=== PATIENT | female | born 2000 | race Two or more races ===

== ENCOUNTER 2024-08-17 20:25 | Inpatient (IN) | payer MEDICAID, SELFPAY ==
[2024-08-17 20:25] VITALS: BMI 24.7
[2024-08-17 22:20] VITALS: BP 87/55; PULSE 111; RESP 18; TEMP 36.8; O2SAT 100
--- NOTE | 2024-08-17 22:31 | EDRME_ITS ---
Rapid Medical Screening Exam [facility] Arrival date/time: 08/17/24 20:25 24F with no significant PMH presents to to ED with 2 days of N/V, gen ab pain/cramping, and possible bright red diarrhea. There is also some lightheadedness. Patient denies URI symptoms, dysuria, and vaginal bleeding. Chief Complaint: General Adult/Misc Complain Vital signs: Vital Signs Temperature 98.2 F 08/17/24 22:20 Pulse Rate 111 H 08/17/24 22:20 Respiratory Rate 18 08/17/24 22:20 Blood Pressure 87/55 L 08/17/24 22:20 Pulse Oximetry (%) 100 08/17/24 22:20 Oxygen Delivery Method Room Air 08/17/24 22:20
[2024-08-17 22:53] VITALS: BP 88/46; PULSE 90; RESP 16; TEMP 36.9; O2SAT 99
[2024-08-17 22:54] LABS: Lactate (Lactic Acid) 3.2 mMol/L (0.4-2.0)
[2024-08-17 22:58] LABS: Basophils # (Auto) 0.1 Thou/mm3 (0.0-0.2); Basophils % (Auto) 0 % (0-2.5); Eosinophils % (Auto) 0 % (0-10); Hematocrit 31.1 % (36.0-46.0); Hemoglobin 10.4 g/dL (12.0-16.0); Immature Granulocytes % (Auto) 14 % (0-0); Immature Granulocytes Auto 3.66 Thou/mm3 (0.00-0.00); Lymphocytes # (Auto) 0.6 Thou/mm3 (1.0-4.8); Lymphocytes % (Auto) 2 % (10-50); Mean Corpuscular HGB Conc 33.4 g/dl (31.0-37.0); Mean Corpuscular Hemoglobin 29.5 pg (25.0-35.0); Mean Corpuscular Volume 88 fL (80-100); Monocytes # (Auto) 1.9 Thou/mm3 (0.0-0.8); Monocytes % (Auto) 7 % (0-12); Neutrophils # (Auto) 20.7 Thou/mm3 (1.8-7.7); Neutrophils % (Auto) 77 % (37-80); Nucleated Red Blood Cell % 0 /100 WBC (0); Platelet Count 205 Thou/mm3 (140-440); RDW Standard Deviation 47.1 fL (36.4-46.3); Red Blood Count 3.53 Miln/mm3 (4.00-5.20)
[2024-08-17 23:02] LABS: Collection Type, Urine Clean Catch
[2024-08-17] MEDS: ONDANSETRON INJ 2 MG/ML INJ 2 ML 4 MG IV (23:02)
[2024-08-17] MEDS: SODIUM CHLORIDE 0.9% 1000 ML 1,000 ML 999 ML IV ×2 (23:04→23:36)
--- NOTE | 2024-08-17 23:10 | EDNOTE_ITS ---
Nausea/Vomit./Diarrhea-RME/HPI General Chief complaint: General Adult/Misc Complain Stated complaint: LIGHHEADED, VOMITING, FEVER, H/A Source: patient Arrival date/time: 08/17/24 20:25 Mode of arrival: ambulatory Limitations: no limitations RME / HPI RME / HPI Narrative: 08/17/24 20:25 24F with no significant PMH presents to to ED with 2 days of N/V, gen ab pain/c ramping, and fevers, chills, body aches and sweats. There is also some lightheadedness. Patient denies URI symptoms, dysuria, and vaginal bleeding. Dr. Barreto?s Main ED Evaluation:?24 y/o male presents to ED c/o intermittent fever, generalized abdominal pain, lightheadedness, sweats, chills, body aches, and headache x 1 week. Patient also reports nausea and vomiting x 2 days and is worse today. Lower and upper back pain also reported. Patient reports urinary urgency. Denies dysuria, sore throat, runny nose, or cough. Also denies any prior abd ominal surgeries. States the only sick contact was her boyfriend who had a cough and stuffy nose. Patient tried Tylenol and Ibuprofen at 2 PM while at home. MD complaint: abdominal pain Onset (ago): week(s) (1) Description of Vomiting: food contents Associated Abdominal Pain: Yes Location of pain: diffuse Severity: moderate Quality: cramping Consistency: constant Associated symptoms: myalgias, fever/chills, headaches, malaise, nausea/vomiting and weakness Related Data Previous Rx's ?Medication ?Instructions ?Recorded ibuprofen 600 mg tablet (IBU) 600 mg PO TID PRN fever or pain 09/01/17 #30 tabs doxycycline hyclate 100 mg capsule 100 mg PO BID #14 c aps 03/03/21 diclofenac sodium 1 % topical gel 4 g topical QID #100 grams 05/11/23 (Voltaren Arthritis Pain) Allergies Allergy/AdvReac Type Severity Reaction Status Date / Time No Known Allergies Allergy Verified 05/11/23 10:03 Review of Systems Review of Systems Systems Reviewed: All systems reviewed, normal except as documented ED Exam Narrative Physical exam: GENERAL APPEARANCE: alert and oriented x 4, well-developed, well-nourished, no acute distress VITALS: All vitals were reviewed and the pulse ox is 100% on room air, which is normal according to my interpretation. HEENT: Normocephalic, atraumatic; pupils equal, round, reactive to light; EOMI; mucous membranes pink, moist; oropharynx clear NECK: Supple LUNGS: CTABL; no wheezes, no rales, no rhonchi HEART: Mild regular tachycardia with rate in the 100's; normal S1, S2; no murmurs ABDOMEN: non distended; normal BS; soft, generalized mild to moderate TTP in all quadrants, not 1 spot more than another spot, no guarding, no rebound; no masses, no organomegaly, no hernia BACK: No CVA tenderness EXTREMITIES: atraumatic; no edema NEUROLOGIC: awake; alert and oriented x4; cranial nerves II-XII grossly intact; no focal sensory or motor deficits PSYCHIATRIC: appropriate mood and affect SKIN: warm, dry, normal color; no rashes General Limitations: Present no limitations Course Course Course Narrative: 2308: CXR is ordered for per sepsis protocol. 2309: Sepsis alert initiated. Orders made at this time are congruent with ED Adult Sepsis Order List. Re-evaluation is to be completed. 0010: NS IVF infused. 0040: Sepsis reassessment performed consisting of lab review, vitals, physical exam including auscultation of heart, lungs, and visual evaluation of capillary refills, mucosal membranes and extremities. Patient's labs and vital signs show the patient is in septic shock. Quality Measures Possible source: GI tract/intra-abdominal Blood cultures ordered: yes Antibiotic ordered: Yes Pertinent labs: 08/17/24 08/18/24 22:44 02:00 Lactic Acid 3.2 H mMol/L 2.6 H mMol/L (0.4-2.0) (0.4-2.0) Procalcitonin 24.17 H ng/ml (0.0-0.49) sepsis Orders Category Date Time Status Bedside Blood Glucose NOW Care 08/17/24 23:08 Active Bedside COVID-19 Antigen Test NOW Care 08/17/24 23:19 Active Bedside Influenza A&B Antigen Test NOW Care 08/17/24 23:[address] Screening NOW Care 08/17/24 23:18 Active Marketing Technology Coordinator now Care 08/17/24 23:08 Active Continuous Pulse Oximetry NOW Care 08/17/24 23:08 Completed Insert IV NOW Care 08/17/24 22:31 Active Insert IV NOW Care 08/17/24 23:08 Completed Strict Intake and Output Routine Care 08/17/24 23:[address] abdomen pelvis wo con Stat Exams 08/18/24 00:44 Completed XR chest 1V SEPSIS PROTOCOL Stat Exams 08/17/24 23:08 Completed Blood Culture (Lab) Stat Lab 08/17/24 23:25 Received CBC Stat Lab 08/17/24 22:44 Completed CMP [Comprehensive Metabolic Panel] Stat Lab 08/17/24 22:44 Completed HCG Qualitative,Urine Stat Lab 08/17/24 22:55 Completed Lactate (Lactic Acid) Stat Lab 08/17/24 22:44 Completed Lactic Acid, 3 HR Stat Lab 08/18/24 02:00 Completed Lipase Stat Lab 08/17/24 22:44 Completed Partial Thromboplastin Time Stat Lab 08/17/24 22:44 [address] Review Blood Smear Stat Lab 08/17/24 22:44 Completed Procalcitonin Stat Lab 08/17/24 22:44 Completed Prothrombin Time with INR Stat Lab 08/17/24 22:44 Completed Troponin I Stat Lab 08/17/24 22:44 Completed Urinalysis, C/S if Indicated Stat Lab 08/17/24 22:55 Completed Urine Culture Stat Lab 08/17/24 22:55 Received Acetaminophen Tab [Tylenol Tab] Med 08/18/24 01:24 Discontinued 650 mg PO Q6HR PRN Doxycycline Inj [Vibramycin Inj] 100 mg Med 08/17/24 23:19 Discontinued Sodium Chloride 0.9% (Pop) [NS 0.9% mini bag] 100 ml IV X1 Norepinephrine/D5W 8mg/250ml [Levophed in D5W 8mg/250ml Med 08/18/24 00:45 Discontinued ] 8 mg in 250 ml IV 0.05 mcg/kg/min Ondansetron Inj [Zofran Inj] Med 08/17/24 22:31 Discontinued 4 mg IV X1 ONE Piper/Tazo 3.375 gm Premix [Zosyn] Med 08/17/24 23:11 Discontinued 3.375 gm in 50 ml IV X1 Sodium Chloride 0.9% 1000 ml [Ns] 1,000 ml Med 08/18/24 00:48 Discontinued IV 125 mls/hr Sodium Chloride 0.9% 1000 ml [Ns] 1,000 ml Med 08/17/24 22:31 Discontinued IV 999 mls/hr Sodium Chloride 0.9% 1000 ml [Ns] 1,000 ml Med 08/17/24 23:10 Discontinued IV 999 mls/hr EKG (RT) Stat RT 08/17/24 23:08 Ordered Oxygen Delivery NOW RT 08/17/24 23:08 Active Reevaluation(s) Reevaluation #1: Mild tachycardia. Patient has moderate flank pain, moderate abdominal pain, and mild tenderness of the abdomen generally. Positive BL CVA tenderness. Time: 00:33 Reevaluation #2: BP 92/48, RR 22, HR 93, map below 65. I will start Levophed. Time: 01:20 Reevaluation #3: BP 110/65, HR 90, RR 17, patient O2 sat 98% on room air. Discussed with patient the need for central line placement and possible ICU admission. Patient is comfortable with plan of care. Time: 02:55 Vital Signs Vital signs: Vital Signs Temperature 98.2 F 08/17/24 22:20 Pulse Rate 111 H 08/17/24 22:20 Respiratory Rate 18 08/17/24 22:20 Blood Pressure 87/55 L 08/17/24 22:20 Pulse Oximetry (%) 100 08/17/24 22:20 Oxygen Delivery Method Room Air 08/17/24 22:20 Nausea/Vomiting/Diarrhea MDM Narrative MDM Narrative:: Scribe Attestation: IJodie am scribing for and in the presence of Dr. Barreto. Provider Notation: Although this document has been carefully reviewed, there may still be some phonetic and other typographical errors.? These errors are purely grammatical due to imperfections in the software program and should not be construed in any way to? compromise the substance of the patient's medical care during this visit. 0324: Right subclavian central line placement procedure started. 0350: Chest X-ray performed showing successful placement of right subclavian central line. Procedure complete. Refer to resident's note for full procedure details. Patient is a 24-year-old female who presented to the emergency department complaining of abdominal pain, nausea, vomiting, fevers, shakes, chills, sweats, headache and associated symptoms. She arrived with blood pressure of 87/55, heart rate 111, respiratory rate 18, temp 98.2 oral. She was saturating 100% on room air. Patient is currently being treated as an outpatient for urinary tract infection with doxycycline. Sepsis alert was called immediately, patient was given 30cc/KG fluid bolus, antibiotics after blood culture collection, full septic workup ordered. In spite of the large fluid bolus the patient remained hypotensive with a MAP less than 65. Levophed was ordered and patient's blood pressure improved with a MAP in the 70s. Patient's workup revealed urosepsis, elevated lactate and procalcitonin, evidence of endorgan hypoperfusion with elevated creatinine and liver enzymes. With the hypotension patient meets septic shock criteria. A right subclavian central line was placed and post x- ray showed good position. Patient will be admitted to the ICU and I spoke with Dr. Griffin. He agreed to admit. Patient data External records reviewed:: [facility] previous records (Prior ED records from 05/11/23. Patient was seen for Acute lumbar myofascial strain.) Clinical information provided by:: patient and parent Social determinants that could affect healthcare access:: none Patient has the following chronic illnesses:: None reported How is presenting disease/condition affected by chronic disease/condition?: no chronic disease Evaluation data The following diagnostics were reviewed and interpreted by me:: lab results and radiology exam(s) Lab and/or radiology exams considered but not ordered:: None Interpretation Summary: LABS Hematology: WBC 27, RBC 3.53, Hgb 10.4, Hct 31.1%, RDW St. Dev 47.1. Coagulation: PT 13.5, APTT 38.5. Chemistry: Creatinine 1.6, Est. Creatinine 48.7, eGFR 46, Glucose 157, Lactic Acid 3.2, AST 47, Alkaline Phosphatas 146, Procalcitonin 24.17. UA: Protein 2+, Blood 1+, RBC 18, WBC 500, Bacteria 4+, Hyaline Casts 3. Serlogy: RADIOLOGY Chest X-Ray: Patient: MILAGRO SULLIVAN. Record#: [id number] Birthdate: 2000 Age/Sex: 24 / F Location: SERX Attending Dr: Ordering Physician: Leroy Barreto MD Date of Service: 08/17/24 Procedure(s): XR chest 1V SEPSIS PROTOCOL Accession Number(s): [id number] cc: Bradford Roman MD; Pierre([facility])Kenneth NP; Leroy Barreto MD~ Examination: AP chest single view TECHNIQUE: AP portable upright chest single view Exam date and time: August 17, 2024, 11:55 PM Comparison March 05, 2024 INDICATIONS: Sepsis protocol FINDINGS: Normal heart size. Lungs are clear. Osseous structures are intact. IMPRESSION: No active disease Dictated By: Bradford Roman MD Signed By: <Electronically signed by Bradford Roman MD in OV> 08/18/24 0000 Post central line chest x-ray: No pneumothorax, good position of line. Abdomen/Pelvis CT: Patient: MILAGRO USLLIVAN. Record#: [id number] Birthdate: 2000 Age/Sex: 24 / F Location: SERX Attending Dr: Ordering Physician: Date of Service: Procedure(s): Accession Number(s): cc: ~ CT scan of the abdomen and pelvis without intravenous contrast (axial sections with sagittal and coronal reformats) August 18, 2024 0111 hours Clinical History: Urosepsis Comparison: None. Findings: Small consolidation at the lung bases, atelectasis versus small foci of pneumonia. The liver, gallbladder, pancreas, spleen and adrenals are unremarkable on this noncontrast study. Prominent bilateral kidneys associated with trace of perinephric fat stranding. No hydronephrosis. No evidence of bowel obstruction. No evidence of appendicitis. There is no mesenteric or retroperitoneal adenopathy. The urinary bladder is not distended, limited evaluation, possible thickening of the urinary bladder wall. There is no free air. Moderate amount of complex free fluid in the pelvis. The osseous structures are unremarkable. The uterus and ovaries are within normal limits. Impression: Moderate amount of complex fluid within the pelvis of uncertain etiology, consider pelvic inflammatory disease in the differential diagnosis. Possible cystitis. Possible bilateral pyelonephritis, limited evaluation of this noncontrast study. Small consolidation at the lung bases, atelectasis versus small foci of pneumonia. Report Electronically Signed By: Andrews Kimball 08/18/2024 1:56:03 AM [EST] DD/ 011 TD/TT: 08/18/24 0156 Supervisor Special Effects: Medications / Prescriptions Medications / Prescriptions considered but not ordered:: None Medication administrations:: Medication Administration History Acetaminophen (Acetaminophen 325 Mg Tablet) 1,000 mg PO Q6H PRN PRN Reason: PAIN SCALE 1-3 or Fever >99 Stop: 09/17/24 02:02 Hydrocodone Bitart/Acetaminophen (Hydrocodone/Apap 5/325 Tablet) 1 tab PO Q6HR PRN PRN Reason: PAIN SCALE 4-10(Mod-Sev Stop: 08/23/24 09:37 Last Admin: 08/18/24 18:18 Dose: 1 tab Documented By: Admin: 08/18/24 10:47 Dose: 1 tab Documented By: ER Doxycycline Hyclate (Doxycycline 100 Mg Tablet) 100 mg PO BID [facility] Stop: 08/25/24 08:59 Last Admin: 08/18/24 09:57 Dose: 100 mg Documented By: ER Enoxaparin Sodium (Enoxaparin Sod Inj 40 Mg/0.4 Ml Syringe) 40 mg SC QDAY [facility] Stop: 09/01/24 08:59 Last Admin: 08/18/24 08:05 Dose: 40 mg Documented By: ER Ceftriaxone Sodium/Dextrose (Rocephin/D5w 1gm Iv Premix) 1 gm in 50 mls @ 100 mls/hr IV QDAY [facility] Stop: 08/25/24 09:08 Last Admin: 08/18/24 09:57 Dose: 100 mls/hr Documented By: ER Lactated Ringer's (Lactated Ringers) 1,000 mls @ 999 mls/hr IV .Q1H1M ONE Stop: 08/18/24 19:52 Last Admin: 08/18/24 18:58 Dose: 999 mls/hr Documented By: SUMIT Magnesium Sulfate (Magnesium Sulfate Ivpb) 4 gm in 50 mls @ 12.5 mls/hr IV X1 ONE Stop: 08/18/24 22:51 Last Admin: 08/18/24 18:57 Dose: 12.5 mls/hr Documented By: SUMIT Lactated Ringer's (Lactated Ringers) 1,000 mls @ 100 mls/hr IV .Q10H MANDY Stop: 09/17/24 18:59 Ondansetron HCl (Ondansetron Inj 2 Mg/Ml Inj 2 Ml) 4 mg IV Q6H PRN; Protocol PRN Reason: NAUSEA OR VOMITING Stop: 09/17/24 02:02 Paroxetine HCl (Paroxetine Hcl 10 Mg Tablet) 20 mg PO QDAY MANDY Stop: 09/17/24 08:59 Last Admin: 08/18/24 08:05 Dose: 20 mg Documented By: ER Discontinued Medications Acetaminophen (Acetaminophen 325 Mg Tablet) 650 mg PO Q6HR PRN PRN Reason: FEVER >101 Stop: 09/17/24 01:23 Acetaminophen (Acetaminophen 325 Mg Tablet) 650 mg PO Q6H PRN PRN Reason: PAIN SCALE 1-3 (mild Stop: 09/17/24 02:02 Last Admin: 08/18/24 04:29 Dose: 650 mg Documented By: RH Acetaminophen (Acetaminophen 325 Mg Tablet) 650 mg PO Q6H PRN PRN Reason: PAIN SCALE 1-3 or Fever >100.3 Stop: 09/17/24 02:02 Acetaminophen (Acetaminophen 500 Mg Tablet) 1,000 mg PO X1 ONE Stop: 08/18/24 18:49 Last Admin: 08/18/24 18:52 Dose: 1,000 mg Documented By: LETICIA Fentanyl Citrate (Fentanyl Cit Inj 50 Mcg/Ml Amp 2ml) 50 mcg IVP X1 ONE Stop: 08/18/24 03:52 Last Admin: 08/18/24 04:01 Dose: 50 mcg Documented By: CASSIDY Sodium Chloride (Ns) 1,000 mls @ 999 mls/hr IV .Q1H1M ONE Stop: 08/17/24 23:31 Last Infusion: 08/18/24 00:10 Dose: Infused Documented By: SUMIT(2) Admin: 08/17/24 23:04 Dose: 999 mls/hr Documented By: CASSIDY Sodium Chloride (Ns) 1,000 mls @ 999 mls/hr IV .Q1H1M ONE Stop: 08/18/24 00:10 Last Infusion: 08/18/24 00:51 Dose: Infused Documented By: Admin: 08/17/24 23:36 Dose: 999 mls/hr Documented By: CASSIDY Piperacillin/Tazobactam/Dextrose (Zosyn) 3.375 gm in 50 mls @ 100 mls/hr IV X1 ONE Stop: 08/17/24 23:40 Last Infusion: 08/18/24 00:10 Dose: Infused Documented By: SUMIT(2) Admin: 08/17/24 23:32 Dose: 100 mls/hr Documented By: CASSIDY Doxycycline Hyclate 100 mg/ (Sodium Chloride) 100 mls @ 100 mls/hr IV X1 ONE Stop: 08/18/24 00:18 Last Infusion: 08/18/24 01:33 Dose: Infused Documented By: Admin: 08/18/24 00:10 Dose: 100 mls/hr Documented By: SUMIT(2) Norepinephrine/Dextrose (Levophed In D5w 8mg/250ml) 8 mg in 250 mls @ 5.953 mls/hr IV .Q24H PRN; Protocol PRN Reason: PER PROTOCOL Stop: 09/17/24 00:44 Last Titration: 08/18/24 10:00 Dose: 0 mcg/kg/min, 0 mls/hr Documented By: Titration: 08/18/24 09:45 Dose: 0.01 mcg/kg/min, 1.191 mls/hr Documented By: Titration: 08/18/24 09:00 Dose: 0.03 mcg/kg/min, 3.572 mls/hr Documented By: Titration: 08/18/24 08:00 Dose: 0.05 mcg/kg/min, 5.953 mls/hr Documented By: Titration: 08/18/24 07:15 Dose: 0.07 mcg/kg/min, 8.335 mls/hr Documented By: Titration: 08/18/24 07:00 Dose: 0.09 mcg/kg/min, 10.716 mls/hr Documented By: Titration: 08/18/24 06:00 Dose: 0.09 mcg/kg/min, 10.716 mls/hr Documented By: Titration: 08/18/24 05:46 Dose: 0.09 mcg/kg/min, 10.716 mls/hr Documented By: Titration: 08/18/24 05:00 Dose: 0.11 mcg/kg/min, 13.097 mls/hr Documented By: Titration: 08/18/24 04:10 Dose: 0.11 mcg/kg/min, 13.097 mls/hr Documented By: Titration: 08/18/24 02:05 Dose: 0.11 mcg/kg/min, 13.097 mls/hr Documented By: Titration: 08/18/24 02:00 Dose: 0.11 mcg/kg/min, 13.097 mls/hr Documented By: Titration: 08/18/24 01:55 Dose: 0.11 mcg/kg/min, 13.097 mls/hr Documented By: Titration: 08/18/24 01:50 Dose: 0.11 mcg/kg/min, 13.097 mls/hr Documented By: Titration: 08/18/24 01:45 Dose: 0.09 mcg/kg/min, 10.716 mls/hr Documented By: Titration: 08/18/24 01:40 Dose: 0.07 mcg/kg/min, 8.335 mls/hr Documented By: Admin: 08/18/24 01:35 Dose: 0.05 mcg/kg/min, 5.953 mls/hr Documented By: EE Sodium Chloride (Ns) 1,000 mls @ 125 mls/hr IV .Q8H MANDY Stop: 09/17/24 00:47 Last Admin: 08/18/24 08:06 Dose: 125 mls/hr Documented By: Infusion: 08/18/24 08:06 Dose: Infused Documented By: Admin: 08/18/24 01:02 Dose: 125 mls/hr Documented By: CB(2) Meropenem 1,000 mg/ Sodium (Chloride) 50 mls @ 100 mls/hr IV Q12HR MANDY Stop: 08/25/24 08:59 Last Admin: 08/18/24 08:06 Dose: 100 mls/hr Documented By: ER Meropenem 1,000 mg/ Sodium (Chloride) 50 mls @ 100 mls/hr IV X1 ONE Stop: 08/18/24 02:44 Last Infusion: 08/18/24 03:25 Dose: Infused Documented By: Admin: 08/18/24 02:33 Dose: 100 mls/hr Documented By: EE Lactated Ringer's (Lactated Ringers) 1,000 mls @ 999 mls/hr IV .Q1H1M ONE Stop: 08/18/24 10:37 Last Admin: 08/18/24 09:57 Dose: 999 mls/hr Documented By: ER Magnesium Sulfate (Magnesium Sulfate Ivpb) 2 gm in 50 mls @ 25 mls/hr IV X1 ONE Stop: 08/18/24 11:50 Last Admin: 08/18/24 10:47 Dose: 25 mls/hr Documented By: ER Lactated Ringer's (Lactated Ringers) 1,000 mls @ 999 mls/hr IV .Q1H1M ONE Stop: 08/18/24 15:45 Last Admin: 08/18/24 17:36 Dose: 999 mls/hr Documented By: HUONG Ibuprofen (Ibuprofen Tab 200 Mg Tablet) 200 mg PO X1 ONE Stop: 08/18/24 18:51 Last Admin: 08/18/24 18:58 Dose: 200 mg Documented By: SUMIT Ondansetron HCl (Ondansetron Inj 2 Mg/Ml Inj 2 Ml) 4 mg IV X1 ONE; Protocol Stop: 08/17/24 22:32 Last Admin: 08/17/24 23:02 Dose: 4 mg Documented By: EE Ondansetron HCl (Ondansetron Inj 2 Mg/Ml Inj 2 Ml) 4 mg IV X1 ONE; Protocol Stop: 08/18/24 03:53 Last Admin: 08/18/24 04:01 Dose: 4 mg Documented By: EE Potassium Chloride (Potassium Chloride 10% 20 Meq/15 Ml Udc) 40 meq PO X1 ONE Stop: 08/18/24 08:44 Last Admin: 08/18/24 09:57 Dose: 40 meq Documented By: ER Potassium Phos/Sodium Phos (Naph,[facility] Mbdb 1 Packet (1.5 Gm)) 1 packet PO X1 ONE Stop: 08/18/24 09:52 Last Admin: 08/18/24 10:47 Dose: 1 packet Documented By: ER See above Consultations Consultation(s) initiated? (list below): Yes Consultation #1 (Physician, Specialty, Details): Dr. Griffin, the hospitalist, made aware of the patient?s HPI, PMHx, lab and/or radiology results. Treatment plan was discussed. Will admit for further evaluation and management. Accepts patient for admission. Time: 00:35 Diagnosis Nausea Differential Diagnosis: dehydration and other (UTI, Pyelonephritis, COVID, Influenza, Sepsis, septic shock, severe sepsis, acute appendicitis, small bowel obstruction) Most likely diagnosis given after review of the tests above:: See clinical impression below Admission Indicated Admission indicated?: indicated Explain why admission is indicated or not indicated:: Septic shock Admission Request Was there a request for admission?: Yes Admission Attestation Admission request attestation: Discussed case with [] from Hospitalist service regarding admission. Discussed patients ED course, exam findings, labs, and radiology results. The Hospitalist [agrees,declines] to accept the patient for admission. Disposition Plan Disposition Plan: Admit Critical Care Time Critical Care Time Critical Care Time: Yes Total Critical Care Time (min.): 80 Attestation: The high probability of sudden, clinically significant deterioration in the patient?s condition required the highest level of my preparedness to intervene urgently. The services I provided to this patient were to treat and/or prevent clinically significant deterioration. Services included the following: chart data review, reviewing nursing notes and/or old charts, documentation time, strategy consultant collaboration regarding findings and treatment options, medication orders and management, direct patient care, vital sign assessments and ordering, interpreting and reviewing diagnostic studies and lab tests. Aggregate critical care time includes only time during which I was engaged in work directly related to the patient?s care, as described above, whether at bedside or elsewhere in the Emergency Department. It did not include time spent performing other reported procedures or the services of residents, students, nurses or physician assistants. Discharge Plan Plan Patient Disposition: Admit Acute Care w/in Hospital Problem List Clinical Impression: Septic shock, Pyelonephritis
[2024-08-17 23:11] VITALS: PULSE 96
[2024-08-17 23:13] LABS: Bacteria,Urine 4+; Bilirubin,Urine Negative (Negative); Blood,Urine 1+ (Negative); Color,Urine Yellow (Lt Yel-Yel); Glucose, Urine Trace (Negative); HCG Qualitative,Urine Negative; Hyaline Casts,Urine 3 /hpf (0-1); Ketones,Urine Trace (Negative); Leukocyte Esterase,Urine Positive (Negative); Nitrite,Urine Negative (Negative); Protein,Urine 2+ (Neg - Trace); RBC,Urine 18 /hpf (0-3); Squamous Epithelial Cell,Urine 1 /hpf (0-5); Urobilinogen,Urine Negative mg/dL (0.0-1.0); WBC,Urine 500 /hpf (0-5)
[2024-08-17 23:15] VITALS: BP 94/58; PULSE 87; RESP 21; O2SAT 100
[2024-08-17 23:29] LABS: Alanine Aminotransferase 34 U/L (10-49); Albumin, Serum 3.6 gm/dL (3.5-5.0); Albumin/Globulin Ratio 1.2 (1.2-2.2); Alkaline Phosphatase 146 U/L (46-116); Anion Gap 9 (7-16); Aspartate Amino Transferase 47 U/L (0-34); BUN/Creatinine Ratio 13 Ratio (12-20); Bilirubin,Total 0.8 mg/dL (0.3-1.2); Blood Urea Nitrogen 20 mg/dL (9-23); Calcium 8.4 mg/dL (8.3-10.6); Calcium (Corrected) 8.7 mg/dL (8.5-10.1); Carbon Dioxide 23.9 mMol/L (20.0-31.0); Chloride 105 mMol/L (98-107); Creatinine (Component) 1.6 mg/dL (0.6-1.3); Estimated Creatinine Clearance 48.7 mL/min (>60); Globulin 2.9 gm/dL (2.3-3.5); Glucose 157 mg/dL (74-106); Lipase 23 U/L (12-53); Osmolality,Calculated 281 (275-295); Potassium 4.2 mMol/L (3.4-5.1); Procalcitonin 24.17 ng/ml (0.0-0.49); Sodium 138 mMol/L (136-145); Total Protein 6.5 gm/dL (5.7-8.2); eGFR 46 See Note
[2024-08-17 23:30] LABS: Clarity,Urine Turbid (Clear/Hazy); Culture Indicated,Urine Yes
[2024-08-17] MEDS: PIPER/TAZO 3.375 GM PREMIX 3.375 GM/50 ML BAG IV (23:32)
[2024-08-17 23:36] VITALS: BP 89/56; PULSE 91; RESP 28; O2SAT 100
[2024-08-17 23:47] LABS: INR 1.3 (0.9-1.3); Partial Thromboplastin Time 38.5 Seconds (22.0-36.0); Prothrombin Time 13.5 Seconds (9.0-12.2)
[2024-08-17 23:48] LABS: Troponin I < 0.020 ng/mL (0.0-0.045)
[2024-08-17 23:57] VITALS: BP 85/53; PULSE 101; RESP 18; O2SAT 99
[2024-08-18] VITALS (81 sets, daily range): BP systolic 72–147; BP diastolic 38–97; PULSE 74–131; RESP 13–98; TEMP 36.3–38.2; O2SAT 77–100; BMI 24.7
[2024-08-18] MEDS: DOXYCYCLINE INJ 100 MG in SODIUM CHLORIDE 0.9% (POP) 100 ML IV (00:10)
--- NOTE | 2024-08-18 00:44 | XR_ITS ---
Examination: CT abdomen and pelvis without contrast. Coronal 3-D reconstructions. Sagittal 2-D reconstructions. Date and time of exam:August 18, 2024 0113 hours INDICATIONS: Vomiting fever headaches urosepsis today CTDI: vol (mGy): 6.37 DLP: (mGycm): 375 Technique: Axial images of the abdomen have been obtained, 3 mm slice thickness Intravenous contrast material has not been administered. Low dose protocols were performed. One or more of the following dose reduction techniques were used; automated exposure control, adjustment of the mA and/or KV according to patient size, use of iterative reconstruction technique. Findings: Mild pneumonia left base No focal liver or splenic lesions No gallstones No pancreatic or adrenal mass Kidneys appear edematous, no hydronephrosis or ureteral calculi Aorta normal size No bowel obstruction Moderate free fluid in the pelvis Urinary bladder intact, mild thickening urinary bladder wall IMPRESSION: Mild pneumonia left base Suspicious for bilateral pyelonephritis Moderate free fluid in the pelvis, recommend pelvic sonography follow-up Cystitis pattern
--- NOTE | 2024-08-18 00:49 | PD.EVENT ---
Documentation for date of: 08/18/24 Event Note Event Note: A 24-year-old female presented to the ER with the chief complaint of fever. The patient described five days of intermittent fever with associated chills and body aches. She reported the fever began last Friday or and has been coming and going since then. She also c/o nausea and vomiting (started yesterday, worsened today), lightheadedness (felt like she might pass out), sweats, headache, generalized abdominal pain (diffuse, bloated, and tender), upper and lower back pain, constipation, and decreased urination. Patient denied sore throat, runny nose, cough, and dysuria. She took Tylenol and Ibuprofen at 2 PM today with no relief. She reported that her boyfriend recently had a cough and stuffy nose. She came to the ER due to worsening symptoms and feeling ?terrible,? with blurry vision and lightheadedness. The patient has no chronic medical conditions and no prior surgeries. Current medications include Paxil. Social history includes no tobacco, alcohol, or recreational drug use. She reports being generally healthy at baseline. In the ER, vital signs recorded as temp 98.2?F, HR 111 bpm, RR 18, BP 87/55 mmHg. Lab revealed Hb 10.4 g/dL, WBC 27.0 Thou/mm3, Plt 205 Thou/mm3, Na 138 mmol/L, K 4.2 mmol/L, Cl 105 mmol/L, BUN 20 mg/dL, Creatinine 1.6 mg/dL, eGFR 46 mL/min, Procalcitonin 24.17 ng/mL, AST 47 U/L, ALT 34 U/L, Bilirubin 0.8 mg/dL, Lactic acid 3.2 mmol/L. UA showed trace glucose, trace ketones, 1+ blood, positive leukocyte esterase, urine RBC 18/hpf, urine WBC 500/hpf, urine bacteria 4+ A, and hyaline casts 3/hpf. Sepsis alert was called. Admit for further evaluation and treatment.
[2024-08-18] MEDS: SODIUM CHLORIDE 0.9% 1000 ML 1,000 ML 125 ML IV ×2 (01:02→08:06)
[2024-08-18] MEDS: Norepinephrine/D5W 8mg/250ml 8 MG/250 ML BAG 5.953 MG IV (01:35)
[2024-08-18 01:51] LABS: Reflex Lactate? Y
--- NOTE | 2024-08-18 01:56 | PRELIM_ITS ---
CT scan of the abdomen and pelvis without intravenous contrast (axial sections with sagittal and coronal reformats) August 18, 2024 0111 hours Clinical History: Urosepsis Comparison: None. Findings: Small consolidation at the lung bases, atelectasis versus small foci of pneumonia. The liver, gallbladder, pancreas, spleen and adrenals are unremarkable on this noncontrast study. Prominent bilateral kidneys associated with trace of perinephric fat stranding. No hydronephrosis. No evidence of bowel obstruction. No evidence of appendicitis. There is no mesenteric or retroperitoneal adenopathy. The urinary bladder is not distended, limited evaluation, possible thickening of the urinary bladder wall. There is no free air. Moderate amount of complex free fluid in the pelvis. The osseous structures are unremarkable. The uterus and ovaries are within normal limits. Impression: Moderate amount of complex fluid within the pelvis of uncertain etiology, consider pelvic inflammatory disease in the differential diagnosis. Possible cystitis. Possible bilateral pyelonephritis, limited evaluation of this noncontrast study. Small consolidation at the lung bases, atelectasis versus small foci of pneumonia. Report Electronically Signed By: Andrews Kimball 08/18/2024 1:56:03 AM [EST]
[2024-08-18 02:01] LABS: Path Review Blood Smear Sent to Pathologist
[2024-08-18 02:06] LABS: Lactic Acid, 3 HR 2.6 mMol/L (0.4-2.0)
--- NOTE | 2024-08-18 02:12 | PD.RESHP ---
Documentation for date of: 08/18/24 HPI History of Present Illness Chief complaint: Generalized weakness and malaise History of present illness: Patient is a 24-year-old female with no relevant past medical history who came to [facility] with a chief complaint of generalized weakness and malaise for 1 week. Patient states that last Friday evening she began to develop fevers and that she traveled to [place] from Friday through Friday for vacation with her boyfriend and continued to feel febrile with poor appetite. She states that when she returned she began to develop abdominal pain and some episodes of loose stools. She states that her stools did appear to be blood-streaked. She states that her boyfriend was dealing with upper respiratory tract infection type symptoms with cough and runny nose prior to their trip and she felt that her symptoms may have been an extension of his illness. She denies any dysuria but does endorse bloating sensation in her abdomen, decreased appetite, generalized bodyaches, left calf pain, with recent sick contact and recent travel. She denies any hot tub exposure, cruise trip, mosquito bites, chest pain, shortness of breath, upper respiratory tract symptoms, or any other associated symptoms. 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 Allergy history: No known drug allergies Family history: Paternal history of heart disease and hypertension. No history of ureterolithiasis Menstrual cycle: Last menstrual period unknown, usually occurs every 4 to 6 weeks, with 1 week of duration. ED vitals: BP 87/55, pulse 111, temp afebrile, O2 sat 100 on room air ED labs: WBC count 27.0, hemoglobin 10.4, PT 13.4, APTT 38.5, creatinine 1.6, glucose 157, lactic acid 3.2 initially improving to 2.6, AST 47, ALT 34, alk phos 146, procalcitonin 24.17. U/A: Turbid, 2+ protein, 1+ blood, 18 RBCs, 500 WBCs, 4+ bacteria and 3 hyaline casts ED imaging: Chest x-ray: No active disease CT abdomen pelvis: Moderate amount of complex fluid within the pelvis of uncertain etiology consider pelvic inflammatory disease Possible cystitis Possible bilateral pyelonephritis with limited evaluation due to noncontrast study Small consolidation at the lung bases, atelectasis versus small foci of pneumonia ED management: 2 L of NS, doxycycline 100 mg IV x 1 Zofran 4 mg IV x 1, Zosyn 3.375 g x 1, Levophed initiated Ultrasound pelvis ordered Review of Systems Review of Systems Systems Reviewed: All systems reviewed, normal except as documented Exam Vital Signs Temp Pulse Resp BP Pulse Ox O2 Del Method 98.4 F 110 H 24 H 82/40 L 100 Room Air 08/18/24 00:46 08/18/24 01:35 08/18/24 01:30 08/18/24 01:35 08/18/24 01:30 08/18/24 01:30 Narrative Exam GENERAL: Alert and oriented x 3. Mild distress and ill appearing. Well-nourished. EYES: EOMI. Anicteric. HEENT: Moist mucous membranes. No scleral icterus. No cervical lymphadenopathy. LUNGS: Clear to auscultation bilaterally. No accessory muscle use. CARDIOVASCULAR: Regular rate and rhythm. No murmur. No JVD. ABDOMEN: Soft, tender to palpation in suprapubic region and Right CVA Tenderness EXTREMITIES: All 4 extremeties intact. No edema. Nontender. SKIN: No rashes or lesions. Warm. NEUROLOGIC: No focal neurological deficits. CN II-XII grossly intact, but not individually tested. PSYCHIATRIC: Cooperative. Appropriate mood and affect. Results: Labs 08/17/24 22:44 08/17/24 22:44 Labs: Short CBC 08/17/24 Range/Units 22:44 WBC 27.0 H (3.6-11.0) Thou/mm3 Hgb 10.4 L (12.0-16.0) g/dL Hct 31.1 L (36.0-46.0) % Plt Count 205 (140-440) Thou/mm3 BMP 08/17/24 22:44 Sodium 138 Potassium 4.2 Chloride 105 Carbon Dioxide 23.9 BUN 20 Creatinine 1.6 H Glucose 157 H Calcium 8.4 Cardiac Enzymes 08/17/24 Range/Units 22:44 Troponin I < 0.020 (0.0-0.045) ng/mL Liver Function 08/17/24 Range/Units 22:44 Total Bilirubin 0.8 (0.3-1.2) mg/dL AST 47 H (0-34) U/L ALT 34 (10-49) U/L Alkaline Phosphatase 146 H (46-116) U/L Albumin 3.6 (3.5-5.0) gm/dL Urine 08/17/24 Range/Units 22:55 Urine Color Yellow (Lt Yel-Yel) Urine Clarity Turbid A (Clear/Hazy) Urine pH 6.0 (5.0-7.0) Ur Specific [place] 1.030 (1.001-1.035) Urine Protein 2+ A (Neg - Trace) Urine Glucose (UA) Trace (Negative) Quality Measures Quality Measures sepsis Current suspected stage: severe sepsis Possible source: genitourinary Blood cultures ordered: yes Antibiotic ordered: Yes Medications Home Medications and Allergies Allergies Allergy/AdvReac Type Severity Reaction Status Date / Time No Known Allergies Allergy Verified 05/11/23 10:03 Visit Medications Acetaminophen (Acetaminophen 325 Mg Tablet) 650 mg PO Q6HR PRN PRN Reason: FEVER >101 Stop: 09/17/24 01:23 Acetaminophen (Acetaminophen 325 Mg Tablet) 650 mg PO Q6H PRN PRN Reason: PAIN SCALE 1-3 (mild Stop: 09/17/24 02:02 Enoxaparin Sodium (Enoxaparin Sod Inj 40 Mg/0.4 Ml Syringe) 40 mg SC QDAY [facility] Stop: 09/01/24 08:59 Norepinephrine/Dextrose (Levophed In D5w 8mg/250ml) 8 mg in 250 mls @ 5.953 mls/hr IV .Q24H PRN; Protocol PRN Reason: PER PROTOCOL Stop: 09/17/24 00:44 Last Titration: 08/18/24 01:45 Dose: 0.09 mcg/kg/min, 10.716 mls/hr Sodium Chloride (Ns) 1,000 mls @ 125 mls/hr IV .Q8H [facility] Stop: 09/17/24 00:47 Last Admin: 08/18/24 01:02 Dose: 125 mls/hr Meropenem 1,000 mg/ Sodium (Chloride) 50 mls @ 100 mls/hr IV Q12HR [facility] Stop: 08/25/24 08:59 Meropenem 1,000 mg/ Sodium (Chloride) 50 mls @ 100 mls/hr IV X1 ONE Stop: 08/18/24 02:44 Ondansetron HCl (Ondansetron Inj 2 Mg/Ml Inj 2 Ml) 4 mg IV Q6H PRN; Protocol PRN Reason: NAUSEA OR VOMITING Stop: 09/17/24 02:02 Discontinued Medications Sodium Chloride (Ns) 1,000 mls @ 999 mls/hr IV .Q1H1M ONE Stop: 08/17/24 23:31 Last Infusion: 08/18/24 00:10 Dose: Infused Sodium Chloride (Ns) 1,000 mls @ 999 mls/hr IV .Q1H1M ONE Stop: 08/18/24 00:10 Last Infusion: 08/18/24 00:51 Dose: Infused Piperacillin/Tazobactam/Dextrose (Zosyn) 3.375 gm in 50 mls @ 100 mls/hr IV X1 ONE Stop: 08/17/24 23:40 Last Infusion: 08/18/24 00:10 Dose: Infused Doxycycline Hyclate 100 mg/ (Sodium Chloride) 100 mls @ 100 mls/hr IV X1 ONE Stop: 08/18/24 00:18 Last Infusion: 08/18/24 01:33 Dose: Infused Ondansetron HCl (Ondansetron Inj 2 Mg/Ml Inj 2 Ml) 4 mg IV X1 ONE; Protocol Stop: 08/17/24 22:32 Last Admin: 08/17/24 23:02 Dose: 4 mg Assessment & Plan Plan Neurology Problem:Stable, NAD Cardiovascular Problem:Shock Likely septic in the setting of urosepsis complicated with cystitis and pyelonephritis. Received adequate IVF resuscitation and on maintenance of 125cc/h Meropenem for ESBL Coverage given the degree of sickness patient is experiencing. On Levophed 0.07. Informed the patient that central line may be required if Levophed requirement continues to increase for which she agreed. Respiratory Problem: Stable, NAD GI and F/E/N Problem: Diarrhea/Loose Stools DDx: Maybe 2/2 to Azithromycyin use or hemorrhoids. Diagnostic Test: Mild Anemia, Will order Iron Studies Renal Problem: BLANCA DDx:Likely Prerenal in the setting of Sepsis and decreased PO intake with losses via Vomitus and Diarrhea Diagnostic Test: Repeat CMP in the a.m. after fluid resuscitation Heme Problem: Anemia, DDx: May be dilutional in the setting of IV fluid resuscitation. Will order iron studies, MCV normal. Did have complaint of blood-streaked stools. If those symptoms continue can consider colonoscopy Endo Problem: Hyperglycemia with blood sugar at 157 DDx: Can be type 2 diabetes Diagnostic Test: Will order A1c in the a.m. Treatment Plan: Treatment Review: ID Problem: Urosepsis complicated with pyelonephritis and cystitis Diagnostic Test: On meropenem, urine cultures pending, blood cultures pending. Ordered STI panel given the fact patient is sexually active and complained of increased clear discharge DVT prophylaxis: Lovenox GI prophylaxis: None Diet: Regular Benson: Not indicated Lines: Peripheral IVs Drips: Levophed, NS at 125 cc/h Vent: N/A CODE STATUS: Full code Reason for hospitalization septic shock secondary to urosepsis and pyelonephritis Plan of care discussed with supervising attending Dr. Elias Uribe M.D. PGY-3 Attending Provider Attestation/Addendum Pt was evaluated and plan formulated together with the housestaff team. I have reviewed the residents note above and agree with most of its content. Please refer to the residents note for additional details.
--- NOTE | 2024-08-18 02:16 | XR_ITS ---
Examination: Pelvic ultrasound, transabdominal, complete Technique: Transabdominal ultrasound of the pelvis performed using grayscale imaging Date and time of exam: August 18, 2024 0451 hours INDICATIONS: Suprapubic pain beginning several days ago FINDINGS: Uterus 8.5 cm endometrial stripe 0.8 cm No uterine mass or intrauterine gestation Right ovary 4.0 cm arterial flow Left ovary 3.6 cm arterial flow Mild to moderate free fluid in the cul-de-sac IMPRESSION: No uterine mass or intrauterine gestation Mild to moderate free fluid in the cul-de-sac, clinical correlation advised
[2024-08-18] MEDS: MEROPENEM INJ 1,000 MG in SODIUM CHLORIDE 0.9% (Popper) 50 ML 100 MG IV ×2 (02:33→08:06)
[2024-08-18 02:44] LABS: HIV (1&2) Antibody Rapid Non-Reactive
--- NOTE | 2024-08-18 03:36 | XR_ITS ---
Examination: AP chest single view TECHNIQUE: AP portable supine chest single view Exam date and time: August 18, 2024 0035 hours INDICATIONS: Status post central line placement FINDINGS: Right subclavian central line tip right atrium Reduced inspiratory effort No pneumothorax Mild vascular congestion IMPRESSION: Right subclavian central line tip satisfactory position, no pneumothorax
[2024-08-18 03:54] LABS: Hepatitis A Antibody IgM Non Reactive (Non React); Hepatitis B Core Antibody IgM Non Reactive (Non React); Hepatitis B Surface Antigen Non Reactive (Non React); Hepatitis C Antibody Non Reactive (Non React)
--- NOTE | 2024-08-18 03:56 | EDNOTE_ITS ---
MD Attestation MD Attestation Proceedure note for Right subclavian central vein A time out was performed. Proceedure was started at 3:24 AM and ended at 3:50 AM. My hands were washed immediately prior to the procedure. I wore a surgical cap, mask with protective eyewear, full gown and sterile gloves throughout the proc edure. The patient was placed in Trendelenburg position. LEFT chest region was prepped using chlorhexidine scrub and draped in sterile fashion using a full drape and sterile probe cover and sterile gel employed. Anesthesia was achieved over the vein using 1% lidocaine. Using real-time out of plane guidance, the introducer needle was inserted into the Rt subclavian vein in triangle of safety under the border of clavicle pointing to manubrium sternal angle. Venous blood was withdrawn. The syringe was removed and a guidewire was advanced into the introducer needle. The guidewire was visualized in the Rt subclavian vein. A small incision was made at the skin surface with a scalpel and the introducer needle was exchanged for a dilator over the guidewire. After appropriate dilation was obtained, the dilator was exchanged over the wire for a central venous catheter. The wire was removed and the catheter was sutured in place. A sterile sorbaview shield was placed over the catheter at the insertion site. The patient tolerated the procedure without any hemodynamic compromise. At time of procedure completion, all ports aspirated and flushed properly. Post- procedure chest x-ray showed satisfactory central line. Estimated blood loss is <5cc. -- Proceedure performed under the supervision of Ed Physician,Dr Estevan Driver MD,PGY2
[2024-08-18] MEDS: fentaNYL CIT INJ 50 mCg/ML AMP 2ML IVP (04:01)
[2024-08-18] MEDS: ONDANSETRON INJ 2 MG/ML INJ 2 ML 4 MG IV (04:01)
[2024-08-18] MEDS: ACETAMINOPHEN 325 MG TABLET 650 MG PO (04:29)
--- NOTE | 2024-08-18 05:59 | PRELIM_ITS ---
Pelvic ultrasound (transabdominal). August 18, 2024 at 0451 hours Clinical history: Septic shock. Possible PID on CT. Technique: Real-time, grayscale, transabdominal pelvic ultrasound was performed using Duplex scanning including arterial inflow, venous outflow, color and spectral Doppler. Comparison: Comparison CT same date Findings: Uterus is 8.5 x 3.9 x 5.5 cm. Right ovary is 4.0 x 2.4 x 3.0 cm. Left ovary is 3.6 x 1.3 x 2.3 cm. Endometrium is 8 mm thick. Normal Doppler flow in bilateral ovaries. Free fluid in the posterior cul-de-sac. There is no adnexal cyst or mass. Impression: Limited by transabdominal technique Free fluid. Recommend clinical correlation. Report Electronically Signed By: Curtis Crisostomo 08/18/2024 5:58:09 AM [EST]
[2024-08-18 07:30] LABS: Lactate (Lactic Acid) 1.4 mMol/L (0.4-2.0)
[2024-08-18 07:37] LABS: Basophils % (Auto) 0 % (0-2.5); Eosinophils % (Auto) 0 % (0-10); Hematocrit 28.1 % (36.0-46.0); Hemoglobin 9.4 g/dL (12.0-16.0); Immature Granulocytes % (Auto) 12 % (0-0); Immature Granulocytes Auto 1.86 Thou/mm3 (0.00-0.00); Lymphocytes # (Auto) 0.6 Thou/mm3 (1.0-4.8); Lymphocytes % (Auto) 4 % (10-50); Mean Corpuscular HGB Conc 33.5 g/dl (31.0-37.0); Mean Corpuscular Hemoglobin 28.7 pg (25.0-35.0); Mean Corpuscular Volume 86 fL (80-100); Monocytes # (Auto) 1.1 Thou/mm3 (0.0-0.8); Monocytes % (Auto) 7 % (0-12); Neutrophils # (Auto) 12.2 Thou/mm3 (1.8-7.7); Neutrophils % (Auto) 77 % (37-80); Nucleated Red Blood Cell % 0 /100 WBC (0); Platelet Count 159 Thou/mm3 (140-440); RDW Standard Deviation 45.9 fL (36.4-46.3); Red Blood Count 3.28 Miln/mm3 (4.00-5.20); White Blood Count 15.7 Thou/mm3 (3.6-11.0)
[2024-08-18 07:53] LABS: Glucose Estimated Average 91 mg/dL (80-131); Hemoglobin A1C 4.8 % Hgb (4.8-6.0)
[2024-08-18 08:02] LABS: Alanine Aminotransferase 28 U/L (10-49); Albumin/Globulin Ratio 1.3 (1.2-2.2); Alkaline Phosphatase 142 U/L (46-116); Anion Gap 8 (7-16); Aspartate Amino Transferase 35 U/L (0-34); BUN/Creatinine Ratio 15 Ratio (12-20); Bilirubin,Total 0.9 mg/dL (0.3-1.2); Blood Urea Nitrogen 12 mg/dL (9-23); Calcium 7.4 mg/dL (8.3-10.6); Calcium (Corrected) 8.2 mg/dL (8.5-10.1); Carbon Dioxide 19.8 mMol/L (20.0-31.0); Chloride 112 mMol/L (98-107); Creatinine (Component) 0.8 mg/dL (0.6-1.3); Estimated Creatinine Clearance 97.2 mL/min (>60); Globulin 2.4 gm/dL (2.3-3.5); Glucose 110 mg/dL (74-106); Magnesium 1.3 mg/dL (1.6-2.6); Osmolality,Calculated 280 (275-295); Phosphorous 1.8 mg/dL (2.4-5.1); Potassium 3.2 mMol/L (3.4-5.1); Sodium 140 mMol/L (136-145); Total Protein 5.4 gm/dL (5.7-8.2); eGFR > 60 See Note
[2024-08-18] MEDS: ENOXAPARIN SOD INJ 40 MG/0.4 ML SYRINGE SC (08:05)
[2024-08-18] MEDS: PARoxetine HCL 10 MG TABLET 20 MG PO (08:05)
[2024-08-18] MEDS: POTASSIUM CHLORIDE 10% 20 MEQ/15 ML UDC 40 MEQ PO (09:57)
[2024-08-18] MEDS: DOXYCYCLINE 100 MG TABLET PO ×2 (09:57→20:11)
[2024-08-18] MEDS: cefTRIAXone/D5w 1gm IV premix 1 GM/50 ML BAG IV (09:57)
[2024-08-18] MEDS: RINGERS LACTATED 1000 ML 1,000 ML 999 ML IV ×3 (09:57→18:58)
--- NOTE | 2024-08-18 10:18 | PD.RESPRO ---
Documentation for date of: 08/18/24 Subjective Subjective Interval history: Patient is a 24-year-old female with no relevant past medical history who came to [facility] with a chief complaint of generalized weakness and malaise for 1 week. Patient states that last Friday evening she began to develop fevers and that she traveled to [place] from Friday through Friday for vacation with her boyfriend and continued to feel febrile with poor appetite. She states that when she returned she began to develop abdominal pain and some episodes of loose stools. She states that her stools did appear to be blood-streaked. She states that her boyfriend was dealing with upper respiratory tract infection type symptoms with cough and runny nose prior to their trip and she felt that her symptoms may have been an extension of his illness. She denies any dysuria but does endorse bloating sensation in her abdomen, decreased appetite, generalized bodyaches, left calf pain, with recent sick contact and recent travel. She denies any hot tub exposure, cruise trip, mosquito bites, chest pain, shortness of breath, upper respiratory tract symptoms, or any other associated symptoms. She also endorsed a few episodes of vomiting and loose stools and increased discharge that is clear and not foul-smelling but more frequent 08/18/2024: Overnight admission for septic shock secondary to urosepsis requiring presors. Patient examined at bedside complaining of bilateral flank pain. Diffuse abdominal tenderness, complaining of pain radiating from supr-pubic region to abdomen. Prior to admission, episodes of nausea and vomiting. Patient denied new sex partners. Patient uses condoms inconsistently. Denied previous STIs. Denied abortions or miscarriages. Recent urinary retention. Denied illicit drug use. Exam Vital Signs Temp Pulse Resp BP Pulse Ox O2 Del Method 98.1 F 112 H 33 H 111/60 96 Room Air 08/18/24 03:00 08/18/24 08:00 08/18/24 08:00 08/18/24 08:00 08/18/24 08:00 08/18/24 03:25 Narrative Exam General Appearance: Alert & Oriented X3, well-nourished female who is lying in bed in no acute distress HEENT: Skull symmetrical and atraumatic. Conjunctivae pink and moist. Pupils equal, round, reactive to light and accommodation (PERRL). External ear without lesion or discharge. Straight, nares patient, mucosa pink, no discharge. No thyroid nodule appreciated. Cardio: Normal Rate and Rhythm with S1 and S2 heart sounds. No murmurs or extra heart sounds auscultated. No bruits on carotid auscultation. No peripheral edema or cyanosis. Lungs: Symmetric with good expansion. Chest and back non-tender. Breath sounds vesicular without crackles, wheezing or rhonchi Abdomen: diffuse tenderness, Non-distended, Hyperactive Reactive Bowel Sounds, Bilateral flank pain Neuro: Alert, cooperative, oriented to person, place, and time. Speech clear. CN grossly intact. Upper motor strength 5/5 and Lower motor strength 5/5. Sensation intact. Objective Labs 08/20/24 04:37 08/20/24 04:37 Labs: Laboratory Results - last 24 hr 08/17/24 08/17/24 08/18/24 22:44 22:55 02:00 WBC 27.0 H RBC 3.53 L Hgb 10.4 L Hct 31.1 L MCV 88 MCH 29.5 MCHC 33.4 RDW Std Deviation 47.1 H Plt Count 205 Neut % (Auto) 77 Lymph % (Auto) 2 L [place] % (Auto) 7 Eos % (Auto) 0 Baso % (Auto) 0 Neut # (Auto) 20.7 H Lymph # (Auto) 0.6 L [place] # (Auto) 1.9 H Eos # (Auto) 0.0 Baso # (Auto) 0.1 Immature Gran # (Auto) 3.66 H Absolute Nucleated RBC 0.00 Immature Gran % 14 H Nucleated RBC % 0 Smear Path Review Sent to Pathologist PT 13.5 H INR 1.3 APTT 38.5 H Sodium 138 Potassium 4.2 Chloride 105 Carbon Dioxide 23.9 Anion Gap 9 BUN 20 Creatinine 1.6 H Estim Creat Clear Calc 48.7 L eGFR 46 L BUN/Creatinine Ratio [address]ucose [address] Glu mg/dL Hemoglobin A1c Calculated Osmolality 281 Lactic Acid 3.2 H 2.6 H Calcium 8.4 Corrected Calcium 8.7 Phosphorus Magnesium Total Bilirubin 0.8 AST 47 H ALT 34 Alkaline Phosphatase 146 H Troponin I < 0.020 Total Protein 6.5 Albumin 3.6 Globulin 2.9 Albumin/Globulin Ratio 1.2 Lipase 23 Procalcitonin 24.17 H Ur Collection Type Clean Catch Urine Color Yellow Urine Clarity Turbid A Urine pH 6.0 Ur Specific [place] 1.030 Urine Protein 2+ A Urine Glucose (UA) Trace Urine Ketones Trace Urine Blood 1+ A Urine Nitrite Negative Urine Bilirubin Negative Urine Urobilinogen (Auto) Negative Ur Leukocyte Esterase Positive Urine RBC 18 H Urine WBC 500 H Ur Squamous Epith Cells 1 Urine Bacteria 4+ A Hyaline Casts 3 H Ur Culture Indicated? Yes Urine HCG, Qual Negative Hepatitis A IgM Ab Non Reactive Hep Bs Antigen Non Reactive Hep B Core IgM Ab Non Reactive Hepatitis C Antibody Non Reactive HIV 1&2 Antibody Rapid Non-Reactive 08/18/24 07:05 WBC 15.7 H D RBC 3.28 L Hgb 9.4 L Hct 28.1 L MCV 86 MCH 28.7 MCHC 33.5 RDW Std Deviation 45.9 Plt Count 159 D Neut % (Auto) 77 Lymph % (Auto) 4 L [place] % (Auto) 7 Eos % (Auto) 0 Baso % (Auto) 0 Neut # (Auto) 12.2 H Lymph # (Auto) 0.6 L [place] # (Auto) 1.1 H Eos # (Auto) 0.0 Baso # (Auto) 0.0 Immature Gran # (Auto) 1.86 H Absolute Nucleated RBC 0.00 Immature Gran % 12 H Nucleated RBC % 0 Smear Path Review PT INR APTT Sodium 140 Potassium 3.2 L D Chloride 112 H Carbon Dioxide 19.8 L Anion Gap 8 BUN 12 Creatinine 0.8 D Estim Creat Clear Calc 97.2 eGFR > 60 BUN/Creatinine Ratio 15 Glucose [address] Glu mg/dL 91 Hemoglobin A1c 4.8 Calculated Osmolality 280 Lactic Acid 1.4 Calcium 7.4 L Corrected Calcium 8.2 L Phosphorus 1.8 L Magnesium 1.3 L Total Bilirubin 0.9 AST 35 H ALT 28 Alkaline Phosphatase 142 H Troponin I Total Protein 5.4 L Albumin 3.0 L D Globulin 2.4 Albumin/Globulin Ratio 1.3 Lipase Procalcitonin Ur Collection Type Urine Color Urine Clarity Urine pH Ur Specific [place] Urine Protein Urine Glucose (UA) Urine Ketones Urine Blood Urine Nitrite Urine Bilirubin Urine Urobilinogen (Auto) Ur Leukocyte Esterase Urine RBC Urine WBC Ur Squamous Epith Cells Urine Bacteria Hyaline Casts Ur Culture Indicated? Urine HCG, Qual Hepatitis A IgM Ab Hep Bs Antigen Hep B Core IgM Ab Hepatitis C Antibody HIV 1&2 Antibody Rapid Quality Measures Quality Measures sepsis Current suspected stage: ruled out Possible source: genitourinary Blood cultures ordered: yes Antibiotic ordered: Yes Assessment & Plan Assessment Current Active Medications: Generic Name Dose Route Start Last Admin Trade Name Freq PRN Reason Stop Dose Admin Acetaminophen 650 mg 08/18/24 09:38 Acetaminophen 325 Mg Tablet PO 09/17/24 02:02 Q6H PRN PAIN SCALE 1-3 or Fever >100.3 Hydrocodone Bitart/Acetaminophen 1 tab 08/18/24 09:38 Hydrocodone/Apap 5/325 Tablet PO 08/23/24 09:37 Q6HR PRN PAIN SCALE 4-10(Mod-Sev Doxycycline Hyclate 100 mg 08/18/24 09:00 08/18/24 09:57 Doxycycline 100 Mg Tablet PO 08/25/24 08:59 100 mg BID MANDY Administration Enoxaparin Sodium 40 mg 08/18/24 09:00 08/18/24 08:05 Enoxaparin Sod Inj 40 Mg/0.4 Ml Syringe SC 09/01/24 08:59 40 mg QDAY MANDY Administration Norepinephrine/Dextrose 8 mg in 250 mls @ 5.953 mls/hr 08/18/24 00:45 08/18/24 08:00 Levophed In D5w 8mg/250ml IV 09/17/24 00:44 0.05 mcg/kg/min .Q24H PRN 5.953 mls/hr PER PROTOCOL Titration Protocol 0.05 MCG/KG/MIN Ceftriaxone Sodium/Dextrose 1 gm in 50 mls @ 100 mls/hr 08/18/24 09:09 08/18/24 09:57 Rocephin/D5w 1gm Iv Premix IV 08/25/24 09:08 100 mls/hr QDAY MANDY Administration Lactated Ringer's 1,000 mls @ 999 mls/hr 08/18/24 09:37 08/18/24 09:57 Lactated Ringers IV 08/18/24 10:37 999 mls/hr .Q1H1M ONE Administration Magnesium Sulfate 2 gm in 50 mls @ 25 mls/hr 08/18/24 09:51 Magnesium Sulfate Ivpb IV 08/18/24 11:50 X1 ONE Ondansetron HCl 4 mg 08/18/24 02:03 Ondansetron Inj 2 Mg/Ml Inj 2 Ml IV 09/17/24 02:02 Q6H PRN NAUSEA OR VOMITING Protocol Paroxetine HCl 20 mg 08/18/24 09:00 08/18/24 08:05 Paroxetine Hcl 10 Mg Tablet PO 09/17/24 08:59 20 mg QDAY MANDY Administration Plan Patient is a 24 year old female with no significant past medical history, who was admitted for shock likely distributive in the setting of urosepsis. 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 [place] [facility]: Shock, liklely distributive in the setting of sepsis. Less likely secondary to cardiogenic in nature s there is no past medical history of cardiomyopathy. Baseline systolic blood pressure for patient 110 per history Plan -2 LR bolus (08/18/2024) and 2 L NS in ER -Ceftriaxone and Doxycycline 08/18/2024 -Blood culture and urine culture Respiratory: stable GI: Diarrhea, resolved. Prior to admission, patient had constipation for several days followed by 2 days with soft stool, both days only having 1 episode per day. Patient noted small streak of blood in tissue paper. Rectal temperature check noted for hemorrhoid. Plan No acute intervention, continue to monitor Renal: BLANCA, Resovled BLANCA, likely pre-renal resolved with hydration after oral and IV fluids. ER 2 NS bolus. ICU 2 LR bolus. Heme #Luekocytosis, improved #Normocytic Anemia Normocytic anemia likely secondary to menstrating female. Less likely secondary to acute blood loss. Consider Iron panel but no ferrous sulfate recommended at this time as patient arrived w/ septic show. -continue to monitor Endo Hyperglycemia likley in the setting of sepsis and less likely to diabetes Mellitus as A1c 4.8 ID Urosepsis complicated by bilateral pyelonephritis Bilateral pyelonephritis cystitis Likely pyelonephritis as noted on CT scan with nasaue, vomiting, and bilateral flank pain vs pelvic inflammatory disease can not be ruled out as Pelvic US noted to have mild to moderate free air, follow up on chlymadia and gonorrhea testing. HIV negative. Hepatitis negative. Meropenem D/C on 08/18/2024. Levophed D/C on 08/18/2024. MAP >65 -Ceftriaxone IV 1 gram and Doxycline 08/18/2024 Chlamydia/GC/TV-PRC -Blood Culture -Urine Culture Health Maintenance: Disp: Pt is currently admitted to floors for further management of urosepsis, awaiting improved hemodynamic stability after Levophed is discontinued. FEN: Regular diet DVT: on subQ heparin Code: Full Code - The patient's plan was discussed with attending Dr. Duke Ruiz MD PGY1 Internal Medicine Attending Provider Attestation/Addendum Patient seen and examined with above resident, Johanne Ruiz MD. Agree with the findings, assessment, and plan of care as documented except for any differences below. Patient placed on broad-spectrum antibiotics with meropenem. We were able to discontinue this with very good improvement after initiation of antibiotics for possible pelvic inflammatory disease. Ultrasound suggestive of this as the etiology and since we have changed antibiotics to ceftriaxone and doxycycline. Will follow-up cultures to determine appropriate treatment course with adequate coverage for possible urinary tract infection with bilateral pyelonephritis given clinical picture along with radiographic findings on CT of the abdomen/pelvis. Send testing to exclude presence of STI including hepatitis and HIV. Patient is tolerating p.o. diet now. Promote fluid intake. Additional volume resuscitation was given based on bedside ultrasonography showing IVC collapse. Straight leg raise throughout the day for additional determination with need for fluids in case of hypotension. Patient otherwise stable for transfer to medicine lang for ongoing management. Total critical care time: I personally spent 35 minutes for review of physiologic parameters, directing plan of care throughout the day, coordination of care with other specialists, and counseling patient at bedside. This is exclusive of time spent teaching/performing any separate billable procedures. Patient remains at significant risk for further morbidity and mortality warranting close monitoring and care only available in the intensive care unit. Patient required critical care services for septic shock secondary to bilateral pyelonephritis versus pelvic inflammatory disease.
[2024-08-18] MEDS: NAPH,KPH MBDB 1 PACKET (1.5 GM) PO (10:47)
[2024-08-18] MEDS: HYDROcodone/APAP 5/325 TABLET 1 TAB PO ×2 (10:47→18:18)
[2024-08-18] MEDS: Magnesium Sulfate 2 GM Ivpb 2 GM/50 ML BAG IV (10:47)
--- NOTE | 2024-08-18 15:38 | PC.SS ---
RADIO MAINTAINER conducted bedside contact with the patient conduct initial assessment and to discuss discharge planning.? Patient confirmed demographic information.? Patient resides at home with family.? Patient is currently employed.? Patient does not utilize any form of DME to assist with ambulation.? Patient does not utilize home oxygen.? Patient describes the ability to complete ADL?s independently.? Patient identified mother, Jyoti Mancini ; as medical surrogate decision maker.? Patient?s PCP is Kenneth Gama.? Patient utilizes [facility] for medication services.? Patient does not participate with dialysis.? Patient does not possess any specialty providers.? Plan is for the patient to return home at the time of discharge.? Family will provide transportation on behalf of the patient. ?No further discharge needs identified by the patient.? No further intervention required at this time, psychiatric social worker will be available to address any further concerns.? Next of Kin: Jyoti Live D/C Plan: Home
--- NOTE | 2024-08-18 17:24 | ESPR_ITS ---
Documentation for date of: 08/18/24 Subjective Subjective Interval history: 08/18/2024: ICU downgrade for 24-year-old female with no significant past medical history who was upgraded to ICU after she was found to be in septic shock secondary to bilateral pyelonephritis. Patient was started on Levophed (pressors) and meropenem. Patient has made steady recovery and will be downgraded to hospitalist team with pressors discontinued and meropenem switched to ceftriaxone and doxycycline. There is suspicion for possible PID; although, this is less likely the cause of sepsis. Will continue to treat the patient with IV antibiotics and monitor for any acute changes. Exam Vital Signs Temp Pulse Resp BP Pulse Ox O2 Del Method 97.3 F 89 18 106/54 L 96 Room Air 08/18/24 11:00 08/18/24 16:50 08/18/24 16:50 08/18/24 15:00 08/18/24 15:00 08/18/24 03:25 Narrative Exam Physical Exam: GENERAL: Awake, answering questions appropriately, appears stated age HEENT: NC/AT. Moist mucosa. PERRLA/EOMI. CARDIO: Heart RRR, no obvious murmurs, no JVD. PULM: No coughing or visible SOB. Lungs CTA B/L. GI: Abdomen soft, NT/ND, +BS. SKIN/MSK/EXT: No wounds/discoloration/rashes/edema/amputations. +Pedal pulses present B/L. NEURO: Oriented x3, Moves extremities x4, no focal neurological deficits noted. Objective Labs 08/19/24 05:00 08/19/24 05:00 Labs: Laboratory Results - last 24 hr 08/17/24 08/17/24 08/18/24 22:44 22:55 02:00 WBC 27.0 H RBC 3.53 L Hgb 10.4 L Hct 31.1 L MCV 88 MCH 29.5 MCHC 33.4 RDW Std Deviation 47.1 H Plt Count 205 Neut % (Auto) 77 Lymph % (Auto) 2 L [place] % (Auto) 7 Eos % (Auto) 0 Baso % (Auto) 0 Neut # (Auto) 20.7 H Lymph # (Auto) 0.6 L [place] # (Auto) 1.9 H Eos # (Auto) 0.0 Baso # (Auto) 0.1 Immature Gran # (Auto) 3.66 H Absolute Nucleated RBC 0.00 Immature Gran % 14 H Nucleated RBC % 0 Smear Path Review Sent to Pathologist PT 13.5 H INR 1.3 APTT 38.5 H Sodium 138 Potassium 4.2 Chloride 105 Carbon Dioxide 23.9 Anion Gap 9 BUN 20 Creatinine 1.6 H Estim Creat Clear Calc 48.7 L eGFR 46 L BUN/Creatinine Ratio [address]ucose [address] Glu mg/dL Hemoglobin A1c Calculated Osmolality 281 Lactic Acid 3.2 H 2.6 H Calcium 8.4 Corrected Calcium 8.7 Phosphorus Magnesium Total Bilirubin 0.8 AST 47 H ALT 34 Alkaline Phosphatase 146 H Troponin I < 0.020 Total Protein 6.5 Albumin 3.6 Globulin 2.9 Albumin/Globulin Ratio 1.2 Lipase 23 Procalcitonin 24.17 H Ur Collection Type Clean Catch Urine Color Yellow Urine Clarity Turbid A Urine pH 6.0 Ur Specific [place] 1.030 Urine Protein 2+ A Urine Glucose (UA) Trace Urine Ketones Trace Urine Blood 1+ A Urine Nitrite Negative Urine Bilirubin Negative Urine Urobilinogen (Auto) Negative Ur Leukocyte Esterase Positive Urine RBC 18 H Urine WBC 500 H Ur Squamous Epith Cells 1 Urine Bacteria 4+ A Hyaline Casts 3 H Ur Culture Indicated? Yes Urine HCG, Qual Negative Hepatitis A IgM Ab Non Reactive Hep Bs Antigen Non Reactive Hep B Core IgM Ab Non Reactive Hepatitis C Antibody Non Reactive HIV 1&2 Antibody Rapid Non-Reactive 08/18/24 07:05 WBC 15.7 H D RBC 3.28 L Hgb 9.4 L Hct 28.1 L MCV 86 MCH 28.7 MCHC 33.5 RDW Std Deviation 45.9 Plt Count 159 D Neut % (Auto) 77 Lymph % (Auto) 4 L [place] % (Auto) 7 Eos % (Auto) 0 Baso % (Auto) 0 Neut # (Auto) 12.2 H Lymph # (Auto) 0.6 L [place] # (Auto) 1.1 H Eos # (Auto) 0.0 Baso # (Auto) 0.0 Immature Gran # (Auto) 1.86 H Absolute Nucleated RBC 0.00 Immature Gran % 12 H Nucleated RBC % 0 Smear Path Review PT INR APTT Sodium 140 Potassium 3.2 L D Chloride 112 H Carbon Dioxide 19.8 L Anion Gap 8 BUN 12 Creatinine 0.8 D Estim Creat Clear Calc 97.2 eGFR > 60 BUN/Creatinine Ratio 15 [address]ucose [address] Glu mg/dL 91 Hemoglobin A1c 4.8 Calculated Osmolality 280 Lactic Acid 1.4 Calcium 7.4 L Corrected Calcium 8.2 L Phosphorus 1.8 L Magnesium 1.3 L Total Bilirubin 0.9 AST 35 H ALT 28 Alkaline Phosphatase 142 H Troponin I Total Protein 5.4 L Albumin 3.0 L D Globulin 2.4 Albumin/Globulin Ratio 1.3 Lipase Procalcitonin Ur Collection Type Urine Color Urine Clarity Urine pH Ur Specific [place] Urine Protein Urine Glucose (UA) Urine Ketones Urine Blood Urine Nitrite Urine Bilirubin Urine Urobilinogen (Auto) Ur Leukocyte Esterase Urine RBC Urine WBC Ur Squamous Epith Cells Urine Bacteria Hyaline Casts Ur Culture Indicated? Urine HCG, Qual Hepatitis A IgM Ab Hep Bs Antigen Hep B Core IgM Ab Hepatitis C Antibody HIV 1&2 Antibody Rapid Quality Measures Quality Measures sepsis Current suspected stage: sepsis Possible source: genitourinary Blood cultures ordered: yes Antibiotic ordered: Yes Assessment & Plan Assessment Current Active Medications: Generic Name Dose Route Start Last Admin Trade Name Freq PRN Reason Stop Dose Admin Acetaminophen 650 mg 08/18/24 09:38 Acetaminophen 325 Mg Tablet PO 09/17/24 02:02 Q6H PRN PAIN SCALE 1-3 or Fever >100.3 Hydrocodone Bitart/Acetaminophen 1 tab 08/18/24 09:38 08/18/24 10:47 Hydrocodone/Apap 5/325 Tablet PO 08/23/24 09:37 1 tab Q6HR PRN Administration PAIN SCALE 4-10(Mod-Sev Doxycycline Hyclate 100 mg 08/18/24 09:00 08/18/24 09:57 Doxycycline 100 Mg Tablet PO 08/25/24 08:59 100 mg BID MANDY Administration Enoxaparin Sodium 40 mg 08/18/24 09:00 08/18/24 08:05 Enoxaparin Sod Inj 40 Mg/0.4 Ml Syringe SC 09/01/24 08:59 40 mg QDAY MANYD Administration Norepinephrine/Dextrose 8 mg in 250 mls @ 5.953 mls/hr 08/18/24 00:45 08/18/24 10:00 Levophed In D5w 8mg/250ml IV 09/17/24 00:44 0 mcg/kg/min .Q24H PRN 0 mls/hr PER PROTOCOL Titration Protocol 0.05 MCG/KG/MIN Ceftriaxone Sodium/Dextrose 1 gm in 50 mls @ 100 mls/hr 08/18/24 09:09 08/18/24 09:57 Rocephin/D5w 1gm Iv Premix IV 08/25/24 09:08 100 mls/hr QDAY MANDY Administration Ondansetron HCl 4 mg 08/18/24 02:03 Ondansetron Inj 2 Mg/Ml Inj 2 Ml IV 09/17/24 02:02 Q6H PRN NAUSEA OR VOMITING Protocol Paroxetine HCl 20 mg 08/18/24 09:00 08/18/24 08:05 Paroxetine Hcl 10 Mg Tablet PO 09/17/24 08:59 20 mg QDAY MANDY Administration Plan 24-year-old female with no relevant past medical history who came to [facility] with a chief complaint of generalized weakness and malaise, found to have septic shock secondary to bilateral pyelonephritis; was initially in ICU for pressors but has been weaned down and will be downgraded to hospitalist team. #Septic shock #Bilateral pyelonephritis Distributive in the setting of sepsis Likely pyelonephritis as noted on CT scan with nasaue, vomiting, and bilateral flank pain vs pelvic inflammatory disease can not be ruled out as Pelvic US noted to have mild to moderate free air; nonspecific finding HIV negative. Hepatitis panel negative Levophed D/C on 08/18/2024. MAP >65 In the ED, patient received a total of 4 L of IV fluid resuscitation and IV meropenem which was later switched to IV ceftriaxone and doxycycline Plan: Continue IV antibiotics Follow-up on blood and urine cultures Chlamydia/GC/TV-PRC #Diarrhea, resolved. Prior to admission, patient had constipation for several days followed by 2 days with soft stool, both days only having 1 episode per day. Patient noted small streak of blood in tissue paper Plan: No acute intervention, continue to monitor #Acute kidney injury, resolved Verónicaley pre-renal resolved with hydration after oral and IV fluids Plan: Continue to monitor with morning labs #Normocytic Anemia Likely secondary to menstruating female, iron deficiency anemia, anemia of chronic disease versus less likely to be vitamin deficiency, hemolytic anemia or bone marrow suppression Less likely secondary to acute blood loss Plan: Follow-up on morning iron panel, ferritin and reticulocyte count #Anxiety Past medical history of anxiety on SSRI. Plan: Continue home [facility] [facility] Management: Lines: PIV Diet: Regular Bowel: Not needed GI prophylaxis: Not needed DVT prophylaxis: Lovenox Dispo: IV antibiotics for pyelonephritis Code: Full Patient seen and assessed with attending Dr. Diaz and senior resident Dr. Vickie Toure, PGY-1 Ruiz Toure, PGY-1 LPatient examined and case discussed with the team including attending physician. Note reviewed, I agree with the care plan as documented. - Alex Johnston MD, PGY 2 Disclaimer: The document may contain phonetic/typographic errors due to voice recognition software. These errors are purely due to imperfections in the software program and should not be misconstrued in any way to compromise the substance of the patient's medical care during this visit. Attending Provider Attestation/Addendum 24-year-old female with no past medical history presented for fever send to have septic shock secondary to pyelonephritis and subsequently started on aggressive IV fluid resuscitation however continued to be hypotensive started on Levophed and transferred to ICU. [facility] and currently continues to be on IV fluid resuscitation and IV antibiotic therapy.I reviewed above note and agree with findings and plans. I have also personally examined the patient with medicine team and went over assessment and plan with medical team including winter intern and resident physician.
--- NOTE | 2024-08-18 18:49 | EKG_ITS ---
[facility] Test Date: 2024-08-18 Pat Name: MILAGRO SULLIVAN [facility] Gender[facility] Face Cleaner: DIALLO : 2000 Requested By: Sammy Martino Order Number: [id number] Reading MD: Sammy Martino Measurements Intervals Center Rate: 119 P: 44 NH: 121 QRS: 59 QRSD: 78 T: 36 QT: 288 QTc: 406 Interpretive Statements SINUS TACHYCARDIA NONSPECIFIC T-WAVE ABNORMALITY ABNORMAL RHYTHM ECG No previous ECG available for comparison /store/S0/[id number]
[2024-08-18] MEDS: ACETAMINOPHEN 500 MG TABLET 1000 MG PO (18:52)
[2024-08-18] MEDS: Magnesium Sulfate 4 GM Ivpb 4 GM/50 ML BAG IV (18:57)
--- NOTE | 2024-08-18 18:57 | EVENTNT_ITS ---
<Statement entered by Alex Johnston MD - 08/18/24 19:29> Patient examined and case discussed with the team including attending physician. Note reviewed, I agree with the care plan as documented. - Alex Johnston MD, PGY 2 Disclaimer: The document may contain phonetic/typographic errors due to voice recognition software. These errors are purely due to imperfections in the software program and should not be misconstrued in any way to compromise the substance of the patient's medical care during this visit. Documentation for date of: 08/18/24 Event Note Event Note: 08/18/2024: Rapid response called sometime around 6:45pm for patient having fever 100.8 and tachycardia 120-130s. Patient seen and assessed with airway/breathing/circulation intact. Patient awake, answering questions but was having chills secondary to fever. Patient recently downgraded from ICU septic shock secondary to bilateral pyelonephritis. On exam, patient has tenderness to palpation diffusely along with CVA tenderness noted. Vitals included BP with MAP 90s, temperature 100.8, satting initially 88 on 4L which improved to mid 90s and heart rate of 128. Ordered lactic acid, CBC, CMP and gave the patient 1000mg of Tylenol and 200mg Ibuprofen for fever control along with 1L bolus of IVF and 100cc/hr LR. Will continue to monitor the patient for any acute changes. Ruiz Toure, PGY-1
[2024-08-18] MEDS: IBUPROFEN TAB 200 MG TABLET PO (18:58)
--- NOTE | 2024-08-18 19:08 | PC.NURSE ---
[employer]OUSINE [employer]IVER called due to shaking, tachycardia, increased oxygen requirement, febrile @ 100.8. bolus, ekg ordered, acetaminophen po 650mg given.
--- NOTE | 2024-08-18 19:09 | PC.NURSE ---
report given to Emily at 1800 pt transported to rm 365, prior to patient leaving ICU, temperature at 100.0, pt having 9/10 pain, norco given per PRN orders, Emily notified
[2024-08-18 19:54] LABS: Lactate (Lactic Acid) 3.1 mMol/L (0.4-2.0)
[2024-08-18 19:57] LABS: Basophils # (Auto) 0.1 Thou/mm3 (0.0-0.2); Basophils % (Auto) 0 % (0-2.5); Eosinophils % (Auto) 0 % (0-10); Hematocrit 30.9 % (36.0-46.0); Immature Granulocytes % (Auto) 17 % (0-0); Immature Granulocytes Auto 3.86 Thou/mm3 (0.00-0.00); Lymphocytes # (Auto) 1.2 Thou/mm3 (1.0-4.8); Lymphocytes % (Auto) 6 % (10-50); Mean Corpuscular HGB Conc 32.4 g/dl (31.0-37.0); Mean Corpuscular Hemoglobin 28.9 pg (25.0-35.0); Mean Corpuscular Volume 89 fL (80-100); Monocytes # (Auto) 1.5 Thou/mm3 (0.0-0.8); Monocytes % (Auto) 7 % (0-12); Neutrophils # (Auto) 15.7 Thou/mm3 (1.8-7.7); Neutrophils % (Auto) 70 % (37-80); Nucleated Red Blood Cell % 0 /100 WBC (0); Platelet Count 182 Thou/mm3 (140-440); RDW Standard Deviation 47.7 fL (36.4-46.3); Red Blood Count 3.46 Miln/mm3 (4.00-5.20); White Blood Count 22.3 Thou/mm3 (3.6-11.0)
[2024-08-18 20:13] LABS: Alanine Aminotransferase 23 U/L (10-49); Albumin, Serum 3.1 gm/dL (3.5-5.0); Albumin/Globulin Ratio 1.1 (1.2-2.2); Alkaline Phosphatase 148 U/L (46-116); Anion Gap 8 (7-16); Aspartate Amino Transferase 24 U/L (0-34); BUN/Creatinine Ratio 11 Ratio (12-20); Bilirubin,Total 0.6 mg/dL (0.3-1.2); Blood Urea Nitrogen 8 mg/dL (9-23); Calcium 7.7 mg/dL (8.3-10.6); Calcium (Corrected) 8.4 mg/dL (8.5-10.1); Carbon Dioxide 21.5 mMol/L (20.0-31.0); Chloride 107 mMol/L (98-107); Creatinine (Component) 0.7 mg/dL (0.6-1.3); Estimated Creatinine Clearance 111.1 mL/min (>60); Globulin 2.7 gm/dL (2.3-3.5); Glucose 112 mg/dL (74-106); Osmolality,Calculated 271 (275-295); Potassium 3.6 mMol/L (3.4-5.1); Sodium 136 mMol/L (136-145); Total Protein 5.8 gm/dL (5.7-8.2); eGFR > 60 See Note
[2024-08-18 22:52] LABS: Reflex Lactate? Y
[2024-08-19] VITALS (14 sets, daily range): BP systolic 95–124; BP diastolic 59–81; PULSE 81–153; RESP 15–99; TEMP 36.2–40.1; O2SAT 92–99
[2024-08-19] MEDS: RINGERS LACTATED 1000 ML 1,000 ML 100 ML IV (00:05)
[2024-08-19 06:18] LABS: Basophils # (Auto) 0.1 Thou/mm3 (0.0-0.2); Basophils % (Auto) 0 % (0-2.5); Eosinophils % (Auto) 0 % (0-10); Hemoglobin 8.9 g/dL (12.0-16.0); Immature Granulocytes % (Auto) 1 % (0-0); Immature Granulocytes Auto 0.13 Thou/mm3 (0.00-0.00); Immature Reticulocyte Fraction 9.2 % (3.0-15.9); Lymphocytes # (Auto) 1.2 Thou/mm3 (1.0-4.8); Lymphocytes % (Auto) 6 % (10-50); Mean Corpuscular Volume 88 fL (80-100); Monocytes # (Auto) 1.5 Thou/mm3 (0.0-0.8); Monocytes % (Auto) 8 % (0-12); Neutrophils % (Auto) 85 % (37-80); Nucleated Red Blood Cell % 0 /100 WBC (0); Platelet Count 147 Thou/mm3 (140-440); RDW Standard Deviation 47.9 fL (36.4-46.3); Red Blood Count 3.07 Miln/mm3 (4.00-5.20); Reticulocyte % (Auto) 0.5 % (0.5-1.5); Reticulocyte Absolute Auto 13.8 Biln/L (25.0-75.0); Reticulocyte Hgb Content 26.6 pg (28.0-35.0); White Blood Count 18.9 Thou/mm3 (3.6-11.0)
[2024-08-19] MEDS: ACETAMINOPHEN 500 MG TABLET 1000 MG PO ×2 (06:29→17:00)
[2024-08-19 06:48] LABS: Alanine Aminotransferase 17 U/L (10-49); Albumin, Serum 2.6 gm/dL (3.5-5.0); Albumin/Globulin Ratio 1.1 (1.2-2.2); Alkaline Phosphatase 140 U/L (46-116); Anion Gap 6 (7-16); Aspartate Amino Transferase 15 U/L (0-34); BUN/Creatinine Ratio 13 Ratio (12-20); Bilirubin,Total 0.5 mg/dL (0.3-1.2); Blood Urea Nitrogen 8 mg/dL (9-23); Calcium 7.5 mg/dL (8.3-10.6); Calcium (Corrected) 8.6 mg/dL (8.5-10.1); Carbon Dioxide 24.3 mMol/L (20.0-31.0); Chloride 110 mMol/L (98-107); Creatinine (Component) 0.6 mg/dL (0.6-1.3); Estimated Creatinine Clearance 129.6 mL/min (>60); Globulin 2.3 gm/dL (2.3-3.5); Glucose 76 mg/dL (74-106); Magnesium 2.3 mg/dL (1.6-2.6); Osmolality,Calculated 276 (275-295); Phosphorous 2.9 mg/dL (2.4-5.1); Potassium 3.9 mMol/L (3.4-5.1); Sodium 140 mMol/L (136-145); Total Protein 4.9 gm/dL (5.7-8.2); eGFR > 60 See Note
[2024-08-19 06:49] LABS: Ferritin 157 ng/mL (7.3-270.7); Iron < 5 mcg/dL (50-170); Percent Iron Saturation 3 % (20-55); Total Iron Binding Capacity 153 mcg/dL (250-425); Unsaturated Iron Binding 148 (225-295)
[2024-08-19] MEDS: IBUPROFEN TAB 200 MG TABLET PO ×2 (07:48→18:17)
--- NOTE | 2024-08-19 08:07 | PD.RESEVENT ---
Documentation for date of: 08/19/24 Event Note Event Note: 08/19/2024: Rapid response called sometime around 7:30 AM per patient having fever 100.8 and tachycardia with heart rate up to 120?130s. Patient seen and assessed, awake and answering questions appropriately but visibly shivering with chills. Patient's airway/breathing/circulation assessed along with vitals which were stable other than her being febrile, tachycardic blood pressure and oxygen saturation were within normal limits on minimal supplemental oxygen. Increase the patient's antibiotics to IV ceftriaxone 2 g daily, repeated blood cultures and gave the patient 1000 milligram acetaminophen along with 200 mg ibuprofen. Added as needed 1 mg morphine every 4 hours for pain secondary to CVA tenderness/pyelonephritis. Will continue to monitor the patient for any acute changes. Ruiz Toure, PGY-1
[2024-08-19] MEDS: ENOXAPARIN SOD INJ 40 MG/0.4 ML SYRINGE SC (09:28)
[2024-08-19] MEDS: MORPHINE SULF INJ 10 MG/ML VIAL IVP ×2 (09:29→19:40)
[2024-08-19] MEDS: cefTRIAXone 2 GM in SODIUM CHLORIDE 0.9% (Popper) 50 ML IV (09:29)
[2024-08-19] MEDS: PARoxetine HCL 10 MG TABLET 20 MG PO (09:32)
[2024-08-19] MEDS: DOXYCYCLINE 100 MG TABLET PO ×2 (09:33→20:22)
[2024-08-19] MEDS: RINGERS LACTATED 1000 ML 1,000 ML 200 ML IV (10:16)
--- NOTE | 2024-08-19 10:34 | PC.NURSE ---
[employer] called at 0742 pt has tachycardia and is Afebrile, at bedside orders given for new meds and patient level of care changed to med-tele. Pt will stay on Med-surge.
[2024-08-19 10:53] LABS: Chlamydia trachomatis PCR Negative (Not Detect); Neisseria Gonorrhoeae DNA PCR Negative (Not Detect); Trichomonas Negative (Negative)
--- NOTE | 2024-08-19 11:37 | ESPR_ITS ---
Documentation for date of: 08/19/24 Subjective Subjective Interval history: 08/19/2024: No acute overnight events to report. As noted in previous note, patient had a rapid response on 08/19 around 7:30 AM. Patient seen and reassessed and appears to be in a more stable condition but continues to report flank pain and CVA tenderness noted on examination. Patient denies having any concerning cardiac symptoms such as chest pain, shortness of breath, palpitations or any dizziness. Patient continues to spike fevers as high as 104.1 ?F; moreover, will continue IV antibiotics and depending on urine cultures make changes as necessary. Will continue treating the patient with antipyretics, IV fluid resuscitation and repeated blood cultures will be analyzed. Patient also has severe iron deficiency anemia; moreover, due to her acutely ill status will not replete and instead recommend outpatient replacement. Exam Vital Signs Temp Pulse Resp BP Pulse Ox O2 Del Method O2 Flow Rate 104.1 F H 120 H 25 H 110/78 97 Room Air 2 08/19/24 08:00 08/19/24 08:00 08/19/24 08:00 08/19/24 08:00 08/19/24 08:00 08/19/24 08:00 08/19/24 07:50 Narrative Exam Physical Exam: GENERAL: Awake, answering questions appropriately, appears stated age, d iaphoretic and in mild distress HEENT: NC/AT. Moist mucosa. PERRLA/EOMI. CARDIO: Tachycardic, no obvious murmurs, no JVD. PULM: No coughing or visible SOB. Lungs CTA B/L. GI: Abdomen soft, tender to palpation on bilateral flanks, CVA tenderness noted, borborygmi apparent SKIN/MSK/EXT: No wounds/discoloration/rashes/edema/amputations. +Pedal pulses present B/L. NEURO: Oriented x3, Moves extremities x4, no focal neurological deficits noted. Objective Labs 08/19/24 05:00 08/19/24 05:00 Labs: Laboratory Results - last 24 hr 08/18/24 08/18/24 08/18/24 14:55 19:38 23:13 WBC 22.3 H D RBC 3.46 L Hgb 10.0 L Hct 30.9 L MCV 89 MCH 28.9 MCHC 32.4 RDW Std Deviation 47.7 H Plt Count 182 Neut % (Auto) 70 Lymph % (Auto) 6 L [place] % (Auto) 7 Eos % (Auto) 0 Baso % (Auto) 0 Neut # (Auto) 15.7 H Lymph # (Auto) 1.2 [place] # (Auto) 1.5 H Eos # (Auto) 0.0 Baso # (Auto) 0.1 Immature Gran # (Auto) 3.86 H Absolute Nucleated RBC 0.00 Immature Gran % 17 H Nucleated RBC % 0 Retic Count (auto) Absolute Retic Immature Retic Fraction Retic Hgb Content CHr Sodium 136 Potassium 3.6 Chloride 107 Carbon Dioxide 21.5 Anion Gap 8 BUN 8 L Creatinine 0.7 Estim Creat Clear Calc 111.1 eGFR > 60 BUN/Creatinine Ratio 11 L Glucose 112 H Calculated Osmolality 271 L Lactic Acid 3.1 H 1.0 Calcium 7.7 L Corrected Calcium 8.4 L Phosphorus Magnesium Iron TIBC Iron Saturation Unsat Iron Binding Ferritin Total Bilirubin 0.6 AST 24 ALT 23 Alkaline Phosphatase 148 H Total Protein 5.8 Albumin 3.1 L Globulin 2.7 Albumin/Globulin Ratio 1.1 L Chlam trachomat DNA PCR Negative N.gonorrhoeae DNA (PCR) Negative Trichomonas DNA Probe Negative 08/19/24 05:00 WBC 18.9 H RBC 3.07 L Hgb 8.9 L Hct 27.0 L MCV 88 MCH 29.0 MCHC 33.0 RDW Std Deviation 47.9 H Plt Count 147 D Neut % (Auto) 85 H Lymph % (Auto) 6 L [place] % (Auto) 8 Eos % (Auto) 0 Baso % (Auto) 0 Neut # (Auto) 16.0 H Lymph # (Auto) 1.2 [place] # (Auto) 1.5 H Eos # (Auto) 0.0 Baso # (Auto) 0.1 Immature Gran # (Auto) 0.13 H Absolute Nucleated RBC 0.00 Immature Gran % 1 H Nucleated RBC % 0 Retic Count (auto) 0.5 Absolute Retic 13.8 L Immature Retic Fraction 9.2 Retic Hgb Content CHr 26.6 L Sodium 140 Potassium 3.9 Chloride 110 H Carbon Dioxide 24.3 Anion Gap 6 L BUN 8 L Creatinine 0.6 Estim Creat Clear Calc 129.6 eGFR > 60 BUN/Creatinine Ratio 13 Glucose 76 Calculated Osmolality 276 Lactic Acid Calcium 7.5 L Corrected Calcium 8.6 Phosphorus 2.9 Magnesium 2.3 Iron < 5 L TIBC 153 L Iron Saturation 3 L Unsat Iron Binding 148 L Ferritin 157 Total Bilirubin 0.5 AST 15 ALT 17 Alkaline Phosphatase 140 H Total Protein 4.9 L Albumin 2.6 L D Globulin 2.3 Albumin/Globulin Ratio 1.1 L Chlam trachomat DNA PCR N.gonorrhoeae DNA (PCR) Trichomonas DNA Probe Quality Measures Quality Measures sepsis Current suspected stage: sepsis Possible source: GI tract/intra-abdominal Blood cultures ordered: yes Antibiotic ordered: Yes Assessment & Plan Assessment Current Active Medications: Generic Name Dose Route Start Last Admin Trade Name Freq PRN Reason Stop Dose Admin Acetaminophen 1,000 mg 08/19/24 06:23 08/19/24 06:29 Acetaminophen 500 Mg Tablet PO 09/18/24 06:22 1,000 mg Q6HR PRN Administration 100.3 fever or pain Hydrocodone Bitart/Acetaminophen 1 tab 08/19/24 08:48 Hydrocodone/Apap 5/325 Tablet PO 08/23/24 09:37 Q6HR PRN PAIN SCALE 4-6 (Moderate Doxycycline Hyclate 100 mg 08/18/24 09:00 08/19/24 09:33 Doxycycline 100 Mg Tablet PO 08/25/24 08:59 100 mg BID MANDY Administration Enoxaparin Sodium 40 mg 08/18/24 09:00 08/19/24 09:28 Enoxaparin Sod Inj 40 Mg/0.4 Ml Syringe SC 09/01/24 08:59 40 mg QDAY MANDY Administration Ceftriaxone Sodium 2 gm/ 50 mls @ 100 mls/hr 08/19/24 07:53 08/19/24 09:29 Sodium Chloride IV 08/26/24 07:52 100 mls/hr QDAY MANDY Administration Lactated Ringer's 1,000 mls @ 200 mls/hr 08/19/24 08:01 08/19/24 10:16 Lactated Ringers IV 08/19/24 13:00 200 mls/hr .Q5H ONE Administration Ibuprofen 200 mg 08/19/24 07:53 Ibuprofen Tab 200 Mg Tablet PO 09/18/24 07:52 Q6HR PRN Fever>99 post 30min of Tylenol Lidocaine 1 patch 08/19/24 07:55 Lidocaine 5% 1 Patch TOP 09/18/24 07:54 UD PRN Back pain (kidneys) Morphine Sulfate 1 mg 08/19/24 08:46 08/19/24 09:29 Morphine Sulf Inj 10 Mg/Ml Vial IVP 08/24/24 08:45 1 mg Q4HR PRN Administration Pain 7-10 Ondansetron HCl 4 mg 08/18/24 02:03 Ondansetron Inj 2 Mg/Ml Inj 2 Ml IV 09/17/24 02:02 Q6H PRN NAUSEA OR VOMITING Protocol Paroxetine HCl 20 mg 08/18/24 09:00 08/19/24 09:32 Paroxetine Hcl 10 Mg Tablet PO 09/17/24 08:59 20 mg QDAY MANDY Administration Plan 24-year-old female with no relevant past medical history who came to [facility] with a chief complaint of generalized weakness and malaise, found to have septic shock secondary to bilateral pyelonephritis; was initially in ICU for pressors but has been weaned down and will be downgraded to hospitalist team. #Septic shock, resolved #Bilateral pyelonephritis Distributive in the setting of sepsis Likely pyelonephritis as noted on CT scan with nasaue, vomiting, and bilateral flank pain vs pelvic inflammatory disease can not be ruled out as Pelvic US noted to have mild to moderate free air; nonspecific finding HIV negative. Hepatitis panel negative Levophed D/C on 08/18/2024. MAP >65 In the ED, patient received a total of 4 L of IV fluid resuscitation and IV meropenem which was later switched to IV ceftriaxone and doxycycline Initial blood cultures show no growth Plan: Increase ceftriaxone to 2 g daily Continue IV fluid resuscitation Follow-up on urine cultures Repeat blood cultures ordered Chlamydia/GC/TV-PRC Tylenol 1000 mg Q6 Ibuprofen 200 mg Multimodal analgesia #Diarrhea, resolved. Prior to admission, patient had constipation for several days followed by 2 days with soft stool, both days only having 1 episode per day. Patient noted small streak of blood in tissue paper Plan: No acute intervention, continue to monitor #Acute kidney injury, resolved Verónicaley pre-renal resolved with hydration after oral and IV fluids Plan: Continue to monitor with morning labs #Severe iron deficiency anemia Likely secondary to menstruating female, iron deficiency anemia, anemia of chronic disease versus less likely to be vitamin deficiency, hemolytic anemia or bone marrow suppression Less likely secondary to acute blood loss Patient's reticulocyte count is low along with severe iron deficiency anemia noted on iron panel Plan: Due to the patient's acutely ill status, will not replete iron while she is inpatient Recommend close follow-up, outpatient iron placement therapy #Anxiety Past medical history of anxiety on SSRI. Plan: Continue home [facility] Management: Lines: PIV Diet: Regular Bowel: Not needed GI prophylaxis: Not needed DVT prophylaxis: Lovenox Dispo: IV antibiotics for pyelonephritis Code: Full Patient seen and assessed with attending Dr. Diaz and senior resident Dr. Vickie Toure, PGY-1 Attending Provider Attestation/Addendum 24-year-old female with no past medical history presented for fever send to have septic shock secondary to pyelonephritis and subsequently started on aggressive IV fluid resuscitation however continued to be hypotensive started on Levophed and transferred to ICU. Overnight, patient downgraded to [facility] and currently continues to be on IV fluid resuscitation and IV antibiotic therapy. Plan was to discharge the patient however continued to have fevers for which we will not change antibiotic therapy at this time and will repeat blood cultures as initial blood cultures are negative. Will continue to monitor closely and anticipate discharge in the next 24-48 hours if patient is afebrile and leukocytosis trending down. I reviewed above note and agree with findings and plans. I have also personally examined the patient with medicine team and went over assessment and plan with medical team including internal control manager and resident physician.
[2024-08-20] VITALS (11 sets, daily range): BP systolic 108–143; BP diastolic 62–87; PULSE 19–115; RESP 16–98; TEMP -13.3–37.1; O2SAT 93–100
[2024-08-20] MEDS: ACETAMINOPHEN 500 MG TABLET 1000 MG PO (05:38)
[2024-08-20 06:16] LABS: Basophils % (Auto) 0 % (0-2.5); Eosinophils % (Auto) 0 % (0-10); Hematocrit 27.7 % (36.0-46.0); Hemoglobin 9.2 g/dL (12.0-16.0); Immature Granulocytes % (Auto) 1 % (0-0); Lymphocytes # (Auto) 1.2 Thou/mm3 (1.0-4.8); Lymphocytes % (Auto) 9 % (10-50); Mean Corpuscular HGB Conc 33.2 g/dl (31.0-37.0); Mean Corpuscular Hemoglobin 28.6 pg (25.0-35.0); Mean Corpuscular Volume 86 fL (80-100); Monocytes # (Auto) 1.2 Thou/mm3 (0.0-0.8); Monocytes % (Auto) 9 % (0-12); Neutrophils # (Auto) 10.1 Thou/mm3 (1.8-7.7); Neutrophils % (Auto) 80 % (37-80); Nucleated Red Blood Cell % 0 /100 WBC (0); Platelet Count 163 Thou/mm3 (140-440); RDW Standard Deviation 47.6 fL (36.4-46.3); Red Blood Count 3.22 Miln/mm3 (4.00-5.20); White Blood Count 12.6 Thou/mm3 (3.6-11.0)
[2024-08-20 06:28] LABS: Alanine Aminotransferase 12 U/L (10-49); Albumin, Serum 2.7 gm/dL (3.5-5.0); Albumin/Globulin Ratio 1.1 (1.2-2.2); Alkaline Phosphatase 153 U/L (46-116); Anion Gap 6 (7-16); Aspartate Amino Transferase 11 U/L (0-34); BUN/Creatinine Ratio 10 Ratio (12-20); Bilirubin,Total 0.4 mg/dL (0.3-1.2); Blood Urea Nitrogen 6 mg/dL (9-23); Calcium 7.8 mg/dL (8.3-10.6); Calcium (Corrected) 8.8 mg/dL (8.5-10.1); Chloride 109 mMol/L (98-107); Creatinine (Component) 0.6 mg/dL (0.6-1.3); Estimated Creatinine Clearance 129.6 mL/min (>60); Globulin 2.5 gm/dL (2.3-3.5); Glucose 85 mg/dL (74-106); Magnesium 1.8 mg/dL (1.6-2.6); Osmolality,Calculated 276 (275-295); Phosphorous 3.8 mg/dL (2.4-5.1); Sodium 140 mMol/L (136-145); Total Protein 5.2 gm/dL (5.7-8.2); eGFR > 60 See Note
[2024-08-20] MEDS: cefTRIAXone 2 GM in SODIUM CHLORIDE 0.9% (Popper) 50 ML IV (08:36)
[2024-08-20] MEDS: PARoxetine HCL 10 MG TABLET 20 MG PO (08:36)
[2024-08-20] MEDS: ENOXAPARIN SOD INJ 40 MG/0.4 ML SYRINGE SC (08:37)
[2024-08-20] MEDS: DOXYCYCLINE 100 MG TABLET PO (08:37)
--- NOTE | 2024-08-20 10:21 | ESPR_ITS ---
Subjective Subjective Interval history: ON O2 at 2lpm probably more for comfort. still some bilateral flank pain and noted pyuria with neg cxr x 2 noted. abn abd imaging noted. no testing noted. lmp 4/5 so is a bit overdue there Exam Vital Signs Temp Pulse Resp BP Pulse Ox O2 Del Method O2 Flow Rate 8.1 F L 101 H 18 134/69 H 97 Room Air 2 08/20/24 08:00 08/20/24 08:00 08/20/24 08:00 08/20/24 08:00 08/20/24 08:00 08/20/24 08:00 08/20/24 06:50 Narrative Exam bilat cvat mild abd tenderness Objective - Internal Medicine Labs 08/20/24 04:37 08/20/24 04:37 Labs: Laboratory Results - last 24 hr 08/18/24 08/20/24 14:55 04:37 WBC 12.6 H D RBC 3.22 L Hgb 9.2 L Hct 27.7 L MCV 86 MCH 28.6 MCHC 33.2 RDW Std Deviation 47.6 H Plt Count 163 Neut % (Auto) 80 Lymph % (Auto) 9 L [place] % (Auto) 9 Eos % (Auto) 0 Baso % (Auto) 0 Neut # (Auto) 10.1 H Lymph # (Auto) 1.2 [place] # (Auto) 1.2 H Eos # (Auto) 0.0 Baso # (Auto) 0.0 Immature Gran # (Auto) 0.10 H Absolute Nucleated RBC 0.00 Immature Gran % 1 H Nucleated RBC % 0 Sodium 140 Potassium 4.0 Chloride 109 H Carbon Dioxide 25.0 Anion Gap 6 L BUN 6 L Creatinine 0.6 Estim Creat Clear Calc 129.6 eGFR > 60 BUN/Creatinine Ratio 10 L Glucose 85 Calculated Osmolality 276 Calcium 7.8 L Corrected Calcium 8.8 Phosphorus 3.8 Magnesium 1.8 Total Bilirubin 0.4 AST 11 ALT 12 Alkaline Phosphatase 153 H Total Protein 5.2 L Albumin 2.7 L Globulin 2.5 Albumin/Globulin Ratio 1.1 L Chlam trachomat DNA PCR Negative N.gonorrhoeae DNA (PCR) Negative Trichomonas DNA Probe Negative Assessment & Plan A&P Narrative uti. doubt pna recent trip with bf. lmp 4/5 per pt will check hcg and f/u friday if remains. in case of , will stop prior abx and go with keflex po as organism in urine s. wean off O2 if you can Time Spent With Patient Time: Total time spent is greater than 50% in coordination of care (as documented) at patient's floor/unit and/or counseling patient:
[2024-08-20 10:33] LABS: HCG,Qualitative Serum Negative
--- NOTE | 2024-08-20 10:49 | PD.HHPROG ---
Documentation for date of: 08/20/24 Subjective - Hospitalist Subjective Interval history: Patient seen and eval this a.m. She states that she is still feeling kind of weak. However, she has not had any fever since yesterday. She continues to have some left flank pain otherwise. No acute events overnight. Mother at bedside. Exam Vital Signs Temp Pulse Resp BP Pulse Ox O2 Del Method O2 Flow Rate 8.1 F L 101 H 18 134/69 H 97 Room Air 2 08/20/24 08:00 08/20/24 08:00 08/20/24 08:00 08/20/24 08:00 08/20/24 08:00 08/20/24 08:00 08/20/24 06:50 Narrative Gen: No acute distress HEENT: NCAT, PERRLOU, Sclera anicteric, conjunctiva noninjected, oral mucosa moist without erythema Neck: Supple, full range of motion, no LAD CV: RRR, no murmurs, rubs or gallops Resp: CTAB/L, no wheezing, rhonchi or rales GI: abdomen soft, bowel sounds noted, mild tenderness to palpation (L>R), no guarding or rebound tenderness, no organomegaly Skin: clean, dry, no rashes, lesions or ecchymosis Ext: no clubbing, cyanosis, or edema Neuro: A&O x3, CN II- XII intact b/l, no focal neurological deficits Objective - Hospitalist Labs Diagram: 08/20/24 04:37 08/20/24 04:37 Labs: Laboratory Results - last 24 hr 08/18/24 08/20/24 14:55 04:37 WBC 12.6 H D RBC 3.22 L Hgb 9.2 L Hct 27.7 L MCV 86 MCH 28.6 MCHC 33.2 RDW Std Deviation 47.6 H Plt Count 163 Neut % (Auto) 80 Lymph % (Auto) 9 L [place] % (Auto) 9 Eos % (Auto) 0 Baso % (Auto) 0 Neut # (Auto) 10.1 H Lymph # (Auto) 1.2 [place] # (Auto) 1.2 H Eos # (Auto) 0.0 Baso # (Auto) 0.0 Immature Gran # (Auto) 0.10 H Absolute Nucleated RBC 0.00 Immature Gran % 1 H Nucleated RBC % 0 Sodium 140 Potassium 4.0 Chloride 109 H Carbon Dioxide 25.0 Anion Gap 6 L BUN 6 L Creatinine 0.6 Estim Creat Clear Calc 129.6 eGFR > 60 BUN/Creatinine Ratio 10 L Glucose 85 Calculated Osmolality 276 Calcium 7.8 L Corrected Calcium 8.8 Phosphorus 3.8 Magnesium 1.8 Total Bilirubin 0.4 AST 11 ALT 12 Alkaline Phosphatase 153 H Total Protein 5.2 L Albumin 2.7 L Globulin 2.5 Albumin/Globulin Ratio 1.1 L HCG, Qual Negative Chlam trachomat DNA PCR Negative N.gonorrhoeae DNA (PCR) Negative Trichomonas DNA Probe Negative Assessment & Plan Assessment: 24-year-old female with no relevant past medical history who came to [facility] with a chief complaint of generalized weakness and malaise, found to have septic shock secondary to bilateral pyelonephritis; was initially in ICU for pressors but has been weaned down and will be downgraded to hospitalist team. #Septic shock, resolved # E. coli UTI and bilateral pyelonephritis Distributive in the setting of sepsis Likely pyelonephritis as noted on CT scan with nasaue, vomiting, and bilateral flank pain vs pelvic inflammatory disease can not be ruled out as Pelvic US noted to have mild to moderate free air; nonspecific finding HIV negative. Hepatitis panel negative Levophed D/C on 08/18/2024. MAP >65 In the ED, patient received a total of 4 L of IV fluid resuscitation and IV meropenem which was later switched to IV ceftriaxone and doxycycline Initial blood cultures show no growth Plan: Patient currently on Rocephin 2 g daily, switch to Keflex by ID Urine cultures positive for E. coli Repeat blood cultures pending, NGTD x 24 hours, pending final cultures and sensitivities. If negative tomorrow, patient may likely be discharged home with antibiotics Chlamydia/GC/TV-PRC negative Tylenol 1000 mg Q6 Ibuprofen 200 mg Multimodal analgesia Continue IV fluid hydration #Diarrhea, resolved. Prior to admission, patient had constipation for several days followed by 2 days with soft stool, both days only having 1 episode per day. Patient noted small streak of blood in tissue paper Plan: No acute intervention, continue to monitor #Acute kidney injury, resolved Verónicaley pre-renal resolved with hydration after oral and IV fluids Plan: Continue to monitor with morning labs #Severe iron deficiency anemia Likely secondary to menstruating female, iron deficiency anemia, anemia of chronic disease versus less likely to be vitamin deficiency, hemolytic anemia or bone marrow suppression Less likely secondary to acute blood loss Patient's reticulocyte count is low along with severe iron deficiency anemia noted on iron panel Plan: Due to the patient's acutely ill status, will not replete iron while she is inpatient Recommend close follow-up, outpatient iron placement therapy #Anxiety Past medical history of anxiety on SSRI. Plan: Continue home [facility] Management: Lines: PIV Diet: Regular Bowel: Not needed GI prophylaxis: Not needed DVT prophylaxis: Lovenox Dispo: IV antibiotics for pyelonephritis Code: Plaster Maker Spent with Patient Time: Total time spent is greater than 50% in coordination of care (as documented) at patient's floor/unit and/or counseling patient: Time with patient: 25 - 35 minutes Reason for Continued Stay Reason for continued stay: further monitoring and pain uncontrolled Quality Measures Quality Measures sepsis Current suspected stage: septic shock (LA >4 and/or hypotension) IVF 30 ml/kg given for lactic acid >4 and/or hypotension: yes Sepsis reassessment completed at (date): 08/20/24 Sepsis reassessment completed at (time): 08:00 Possible source: GI tract/intra-abdominal Blood cultures ordered: yes Antibiotic ordered: Yes
[2024-08-20] MEDS: HYDROcodone/APAP 5/325 TABLET 1 TAB PO ×2 (11:12→17:49)
[2024-08-20] MEDS: cephALEXin 250 MG CAPSULE 500 MG PO ×3 (11:12→20:55)
--- NOTE | 2024-08-20 12:38 | ESCONSULT_ITS ---
RE: MILAGRO SULLIVAN : 2000 DATE OF CONSULTATION: 08/20/2024 REFERRING PHYSICIAN: Dr. Griffin, Hospitalist REASON FOR CONSULTATION: UTI, pelvic pain and CVA tenderness with intermittent fever in a 24-year-old. HISTORY OF PRESENT ILLNESS: The patient is a 24-year-old, admitted 48 hours ago. She has been on antibiotics. Cultures have been positive on the urine, but blood cultures have been negative for 48 hours. She has bilateral CVA tenderness and urinary tract infection and admits that she may be as she had intimate contact with her boyfriend presumably in the last month and was recently traveling with him. Her last menstrual period was 07/17 approximately, so she may be a little overdue there. SURGICAL HISTORY: None. ALLERGIES: NONE NOTED. IMMUNIZATIONS: Last status is unknown. She does not take a flu shot every year, has had two COVID vaccines, and has not had pneumococcal vaccinations. FAMILY HISTORY: Unremarkable. SOCIAL HISTORY: She lives at home with her parents and her brother. No tobacco, alcohol or drug use noted. PHYSICAL EXAMINATION: GENERAL: She is an uncomfortable heavyset woman. VITAL SIGNS: as noted. BMI of 24.8. HEENT: Benign. HEART: Benign. LUNGS: Benign other than the CVA tenderness. ABDOMEN: Mild abdominal pain. ASSESSMENT: Pyuria with negative chest x-ray and mild hypoxemia. RECOMMENDATIONS: I am going to check a hCG, change her to Keflex and she can potentially go home as early as tomorrow if she improves on that. I will check on her remotely through the weekend. If necessary, you can call me or if there is a concern, she may go home. I will get her off the dicyclomine in case she is because that can cause bony changes and switch her to Keflex. If you need to, we can use cefuroxime okay in . I will look forward to seeing her on Friday if she remains. If she is not here, that would be fine. DT: 10:28:47 TT: 11:46:00 Ref: [id number] - TID: [id number] [facility]
[2024-08-20] MEDS: SODIUM CHLORIDE 0.9% 1000 ML 1,000 ML 75 ML IV (17:41)
[2024-08-21] VITALS (7 sets, daily range): BP systolic 115–129; BP diastolic 66–78; PULSE 67–106; RESP 20–100; TEMP 36.6–37.8; O2SAT 95–100
[2024-08-21] MEDS: ACETAMINOPHEN 500 MG TABLET 1000 MG PO (03:52)
[2024-08-21 05:46] LABS: Basophils % (Auto) 0 % (0-2.5); Eosinophils % (Auto) 0 % (0-10); Hematocrit 27.4 % (36.0-46.0); Hemoglobin 9.3 g/dL (12.0-16.0); Immature Granulocytes % (Auto) 2 % (0-0); Immature Granulocytes Auto 0.14 Thou/mm3 (0.00-0.00); Lymphocytes # (Auto) 1.3 Thou/mm3 (1.0-4.8); Lymphocytes % (Auto) 18 % (10-50); Mean Corpuscular HGB Conc 33.9 g/dl (31.0-37.0); Mean Corpuscular Hemoglobin 28.6 pg (25.0-35.0); Mean Corpuscular Volume 84 fL (80-100); Monocytes % (Auto) 14 % (0-12); Neutrophils # (Auto) 4.6 Thou/mm3 (1.8-7.7); Neutrophils % (Auto) 66 % (37-80); Nucleated Red Blood Cell % 0 /100 WBC (0); Platelet Count 207 Thou/mm3 (140-440); RDW Standard Deviation 44.8 fL (36.4-46.3); Red Blood Count 3.25 Miln/mm3 (4.00-5.20)
[2024-08-21] MEDS: SODIUM CHLORIDE 0.9% 1000 ML 1,000 ML 75 ML IV (05:52)
[2024-08-21] MEDS: cephALEXin 250 MG CAPSULE 500 MG PO (05:52)
[2024-08-21 06:15] LABS: Alanine Aminotransferase 11 U/L (10-49); Albumin, Serum 2.6 gm/dL (3.5-5.0); Alkaline Phosphatase 130 U/L (46-116); Anion Gap 5 (7-16); Aspartate Amino Transferase < 10 U/L (0-34); BUN/Creatinine Ratio 10 Ratio (12-20); Bilirubin,Total 0.3 mg/dL (0.3-1.2); Blood Urea Nitrogen < 5 mg/dL (9-23); Calcium 7.3 mg/dL (8.3-10.6); Calcium (Corrected) 8.4 mg/dL (8.5-10.1); Chloride 107 mMol/L (98-107); Creatinine (Component) 0.5 mg/dL (0.6-1.3); Estimated Creatinine Clearance 155.6 mL/min (>60); Globulin 2.6 gm/dL (2.3-3.5); Glucose 95 mg/dL (74-106); Magnesium 1.6 mg/dL (1.6-2.6); Osmolality,Calculated 272 (275-295); Phosphorous 3.4 mg/dL (2.4-5.1); Potassium 3.3 mMol/L (3.4-5.1); Sodium 138 mMol/L (136-145); Total Protein 5.2 gm/dL (5.7-8.2); eGFR > 60 See Note
[2024-08-21] MEDS: CALCIUM CARBONATE 600 MG TABLET PO (08:11)
[2024-08-21] MEDS: ENOXAPARIN SOD INJ 40 MG/0.4 ML SYRINGE SC (08:11)
[2024-08-21] MEDS: Magnesium Sulfate 2 GM Ivpb 2 GM/50 ML BAG IV (08:12)
[2024-08-21] MEDS: POTASSIUM CHLORIDE 20 mEq TABCR 40 MEQ PO (08:12)
[2024-08-21] MEDS: PARoxetine HCL 10 MG TABLET 20 MG PO (08:12)
--- NOTE | 2024-08-21 11:38 | ESDS_ITS ---
<Statement entered by Virginia Valdovinos DO - 08/21/24 13:01> I, Virginia Valdovinos DO, attest that I was physically present for the handley portions of the service and evaluated the patient with the resident and I reviewed and discussed the case with the resident and agree with the resident's findings and plans of care as documented above Planned Discharge Date 08/21/24 DS: Providers Provider Date of admission: 08/18/24 02:03 Primary care physician: Kenneth Jay([facility]), ATTRACTION ATTENDANT Admitting Provider: Clay Griffin MD Attending Provider on Admission: Virginia Valdovinos DO Consults: 08/19/24 10:54 Consult to Infectious Diseases Routine Comment: Persistant fevers despite abx Consulting Provider: Jefferson Pike Attending Provider on DC: Virginia Valdovinos DO Discharging Provider: Alex Johnston MD DS: Diagnosis Discharge Diagnosis (1) Pyelonephritis: Status: Acute Problem List Completed Was Problem List Reviewed/Reconciled?: Yes Hospital Course Hospital Course Hospital course: Hospital Course: Ms Jarrett is a 24-year-old female with no relevant past medical history who came to [facility] with a chief complaint of generalized weakness and malaise, found to have septic shock secondary to bilateral pyelonephritis; was initially in ICU for vasopressor support but has been weaned down and downgraded to hospitalist team after 24 hours. Patient improved on rocephin IVB daily. ID was consulted and recommended Keflex 500mg QID for 7 days given pansensitive E.coli UTI. She was advised to complete course as prescribed. Patient has returned to baseline with resolution of abdominal/ flank pain. Recommend follow up with PCP after 1 week once antibiotic course completed. Problems on this admission: - Septic shock, resolved - E. coli UTI causing bilateral pyelonephritis - Diarrhea, resolved. - Acute kidney injury, resolved - Severe iron deficiency anemia - Anxiety Procedures: Observation in ICU x 24 hours for septic shock - now resolved. Discharge instructions: - Follow up with PCP within 1 week. If you dont have a PCP, please call for an appointment at the [facility] - Take Keflex 500mg four times a day for 6 days mroe to complete course - May take tylenol 500mg x2 tabs if fever >99 ; and for pain - Return to ED if symptoms worsen We are grateful to be able to participate in Ms Jarrett's care. We wish her the best. Plan of care discussed with attending Dr Valdovinos - Alex Johnston M.D. PGY2 Disclaimer: Minor errors in horse show judge may be present as this note was dictated using voice recognition software. Status at Discharge Cognitive/behavioral status at discharge: Stable and returned to baseline. Time Spent with Patient Time attestation: Total time spent providing and/or coordinating discharge services: more than 50% Time spent: Greater than 30 minutes Quality: Stroke Pt Provided Written Stroke Discharge Instructions: No (N/A) Exam Vital Signs Temp Pulse Resp BP Pulse Ox O2 Del Method O2 Flow Rate 98.0 F 97 24 H 115/73 96 Room Air 2 08/21/24 08:00 08/21/24 10:45 08/21/24 10:45 08/21/24 08:00 08/21/24 08:00 08/21/24 08:00 08/21/24 01:48 Narrative Exam Constitutional Alert, oriented x3 and comfortable HEENT Vision grossly intact. Patent nares. Trachea midline. Respiratory Chest normal on inspection and clear to auscultation bilaterally. Cardiovascular S1 and S2 audible, RRR. No murmurs or carotid bruit. No gross JVD. Abdominal Soft and non tender to palpation in all quadrants. BS + Genitourinary No bladder tenderness, no flank pain. Normal to palpation. Musculoskeletal Extremities tone within normal limits. No LE edema. Neurological CN II - XII grossly intact. Extremity motor and sensation grossly intact. Skin Warm, dry and intact. No apparent lesions. Psychiatric Patient has a good affect, is cooperative. Discharge Plan Plan Patient Disposition: HOME (Self Care) Patient condition on transfer: Stable Care Plan Goals: - Follow up with PCP within 1 week. If you dont have a PCP, please call for an appointment at the [facility] - Take Keflex 500mg four times a day for 6 days mroe to complete course - May take tylenol 500mg x2 tabs if fever >99 ; and for pain - Return to ED if symptoms worsen Prescriptions/Referrals Prescriptions/Med Rec: New cephalexin 500 mg capsule 500 mg PO QID 6 Days Qty: 24 0RF acetaminophen [Pain Relief (acetaminophen)] 500 mg tablet 500 mg PO Q6H PRN (Reason: fever >99) 14 Days Qty: 20 0RF Continued diclofenac sodium [Voltaren Arthritis Pain] 1 % gel 4 g topical QID Qty: 100 0RF Rx Instructions: apply to single knee, ankle, foot; for foot includes sole/toes/top of foot Discontinued doxycycline hyclate 100 mg capsule 100 mg PO BID Qty: 14 0RF ibuprofen [IBU] 600 mg tablet 600 mg PO TID PRN (Reason: fever or pain) Qty: 30 0RF Referrals: Pierre([facility]),MEHREEN Cooper [Primary Care Provider] - Patient/Caregiver Discharge Instructions Discharge Activity: resume usual activities Education Materials: Understanding Urinary Tract ..., Sepsis Print Language: Korean Stand Alone Forms: Vickie Award Info., Patient Portal Info Letter Discharge Order Discharge Orders: Discharge (Routine); Ordered 08/21/24 Ordered By: Alex Johnston Quality Discharge Quality Measures VTE prophylaxis
== END 2024-08-21 11:31 | disposition home or self-care (01) | DRG 720 ==
LOC: SERX 08-18 02:30 → SERHOLD 08-18 02:40 → S2SX 08-18 04:10 → S3NX 08-18 18:36
PROVIDERS: Internal Medicine Infectious Disease; Physician Assistant; Student in an Organized Health Care Education/Training Program; Admitting Provider Internal Medicine; Emergency Provider Emergency Medicine; PCP Nurse Practitioner Family; Visit Provider Internal Medicine
DX: A41.51 Sepsis due to Escherichia coli [E. coli] (principal); R65.21 Severe sepsis with septic shock; N17.9 Acute kidney failure, unspecified; D64.9 Anemia, unspecified; R73.9 Hyperglycemia, unspecified; R19.7 Diarrhea, unspecified; N12 Tubulo-interstitial nephritis, not specified as acute or chronic; N30.90 Cystitis, unspecified without hematuria; D50.9 Iron deficiency anemia, unspecified; E87.20 Acidosis, unspecified; F41.9 Anxiety disorder, unspecified; K59.00 Constipation, unspecified; Z79.899 Other long term (current) drug therapy
CPT/HCPCS: 36415; 71045; 74176; 76856; 80053; 80074; 81001; 81025; 82728; 83036; 83540; 83550; 83605; 83690; 83735; 84100; 84145; 84484; 84703; 85025; 85046; 85610; 85730; 86703; 87040; 87077; 87081; 87086; 87186; 87400; 87491; 87591; 87661; 87811; 93005; 96365; 96367; 96375; 99291; 99292; J0696; J1650; J2185; J2270; J2405; J2543; J3010; J3475; J3490; J7030; J7120; A9270

== ENCOUNTER 2024-10-05 08:49 | Emergency (ER) | payer MEDICAID, SELFPAY ==
[2024-10-05 08:55] VITALS: BP 110/74; PULSE 71; RESP 17; TEMP 36.6; O2SAT 95; BMI 24.0
[2024-10-05 09:34] LABS: Collection Type, Urine Clean Catch
[2024-10-05 09:39] LABS: HCG Qualitative,Urine Negative
[2024-10-05 09:41] LABS: Bilirubin,Urine Negative (Negative); Blood,Urine Negative (Negative); Clarity,Urine Clear (Clear/Hazy); Color,Urine Colorless (Lt Yel-Yel); Culture Indicated,Urine Not Indicated; Glucose, Urine Negative (Negative); Ketones,Urine Negative (Negative); Leukocyte Esterase,Urine Negative (Negative); Nitrite,Urine Negative (Negative); Protein,Urine Negative (Neg - Trace); RBC,Urine 1 /hpf (0-3); Specific Gravity,Urine 1.008 (1.001-1.035); Squamous Epithelial Cell,Urine 3 /hpf (0-5); Urobilinogen,Urine Negative mg/dL (0.0-1.0); WBC,Urine 1 /hpf (0-5)
--- NOTE | 2024-10-05 09:56 | PD.EDABDPN ---
ED Abdominal Pain RME/HPI General Chief Complaint: Abdominal Pain Stated complaint: Diego. flank pain, buring with urination x 3d Time seen by provider: 10/05/24 08:52 Arrival date/time: 10/05/24 08:49 24-year-old female presents department today for complaints of dysuria patient denies any hematuria or back pain Limitations: no limitations Related Data Previous Rx's ?Medication ?Instructions ?Recorded diclofenac sodium 1 % topical gel 4 g topical QID #100 grams 05/11/23 (Voltaren Arthritis Pain) ciprofloxacin HCl 500 mg tablet 500 mg PO BID 7 days #14 tabs 10/05/24 ibuprofen 600 mg tablet 600 mg PO Q6H #30 tabs 10/05/24 ondansetron 4 mg disintegrating 4 mg PO Q8H PRN nausea and 10/05/24 tablet vomiting #10 tabs phenazopyridine 100 mg tablet 100 mg PO TID 2 days #6 tabs 10/05/24 (Pyridium) Allergies Allergy/AdvReac Type Severity Reaction Status Date / Time No Known Allergies Allergy Verified 10/05/24 08:52 Review of Systems Review of Systems Systems Reviewed: All systems reviewed, normal except as documented Constitutional Constitutional: Reports system reviewed and no additional complaints, except as documented, Denies fever(s) and Denies headache(s) Eyes Eyes: Reports system reviewed and no additional complaints, except as documented and Denies blurry vision ENT Ears, Nose, Mouth, and Throat: Reports system reviewed and no additional complaints, except as documented, Denies headache(s), Denies nasal congestion and Denies nasal discharge Cardiovascular Cardiovascular: Reports system reviewed and no additional complaints, except as documented, Denies chest pain and Denies dyspnea Respiratory Respiratory: Reports system reviewed and no additional complaints, except as documented, Denies chest congestion, Denies cough and Denies dyspnea Gastrointestinal Gastrointestinal: Reports system reviewed and no additional complaints, except as documented, Denies abdominal pain and Reports nausea Genitourinary Genitourinary: Reports system reviewed and no additional complaints, except as documented and Reports dysuria Integumentary/Breasts Skin/Breast: Reports system reviewed and no additional complaints, except as documented and Denies rash Neurologic Neurologic: Reports system reviewed and no additional complaints, except as documented, Reports as per HPI and Denies headache(s) Past Medical History Past Medical History CARDIAC: Negative Cardiac Disorders or Congestive Heart Failure RESPIRATORY: Negative Chronic Obstructive Pulmonary Disease (COPD) or Asthma GENITOURINARY: Negative Renal Disease ENDOCRINE: Negative Diabetes Mellitus Type 1 or Diabetes Mellitus Type 2 HEMATOLOGIC: Negative Sickle Cell Disease Social History SMOKING STATUS: Never smoker ED Exam General Limitations: Present no limitations General appearance: Present alert and in no apparent distress Head Head exam: Present atraumatic Eye Eye exam: Present normal appearance, PERRL and EOMI ENT ENT exam: Present normal exam, normal oropharynx and mucous membranes moist Neck Neck exam: Present normal inspection, full ROM and trachea midline Chest Chest inspection: Present normal inspection and symmetric chest wall rise Respiratory Respiratory exam: Present normal lung sounds bilaterally Cardiovascular Cardiovascular exam: Present regular rate, normal rhythm and normal heart sounds Abdominal Exam Abdominal exam: Present soft and normal bowel sounds; Absent distention or tenderness Extremities Exam Extremities exam: Present normal inspection and full ROM Back Exam Back exam: Present normal inspection and full ROM Neurological Exam Neurological exam: Present alert, oriented X3 and CN II-XII intact Psychiatric Psychiatric exam: Present normal affect and normal mood Skin Skin exam: Present warm, dry, intact and normal color Course Quality Measures none Orders Category Date Time Status HCG Qualitative,Urine Stat Lab 10/05/24 09:20 Completed UA, C/S IF [Urinalysis, C/S if Indicated] Stat Lab 10/05/24 09:20 Completed Vital Signs Vital signs: Vital Signs Temperature 97.8 F 10/05/24 08:55 Pulse Rate 71 10/05/24 08:55 Respiratory Rate 17 10/05/24 08:55 Blood Pressure 110/74 10/05/24 08:55 Pulse Oximetry (%) 95 10/05/24 08:55 Oxygen Delivery Method Room Air 10/05/24 08:55 o2 sat 95% r.a wnl Abdominal Pain MDM MDM Narrative MDM Narrative:: 24-year-old female presents department today for complaints of dysuria patient denies any hematuria or back pain On exam patient well-appearing patient does not appear toxic no acute distress Urinalysis obtained no significant infection noted Patient discharged home in no distress to follow-up with primary care doctor in the next 24 to 48 hours and for any worsening symptoms to return to the ER immediately Patient data External records reviewed:: [facility] previous records Clinical information provided by:: patient Social determinants that could affect healthcare access:: none Patient has the following chronic illnesses:: none How is presenting disease/condition affected by chronic disease/condition?: no chronic disease Evaluation data The following diagnostics were reviewed and interpreted by me:: lab results Lab and/or radiology exams considered but not ordered:: lab obtained Interpretation Summary: reviewed by me Medications / Prescriptions Medications or Prescriptions considered but not ordered:: given rx Medication administrations:: given Consultations Consultation(s) initiated? (list below): No Diagnosis Differential diagnosis abdominal pain: abdominal pain, acute appendicitis, calculus of kidney, gastroenteritis, pancreatitis and small bowel obstruction Most likely diagnosis given after review of the tests above:: UTI Admission Indicated Admission indicated?: not indicated Admission Request Was there a request for admission?: No Disposition Plan Disposition Plan: Discharge Discharge Attestation Discharge Attestation: The patient and all family members were given an opportunity to ask questions and understood the discharge instructions. Discharge instructions specifically effects, indications for sooner follow up or return to the emergency department, and the expected course of current diagnosis. Patient condition: Stable Discharge Plan Plan Patient Disposition: HOME (Self Care) Discharge Disposition comment: Stable Prescriptions/Referrals Prescriptions/Med Rec: New ciprofloxacin HCl 500 mg tablet 500 mg PO BID 7 Days Qty: 14 0RF phenazopyridine [Pyridium] 100 mg tablet 100 mg PO TID 2 Days Qty: 6 0RF ibuprofen 600 mg tablet 600 mg PO Q6H Qty: 30 0RF ondansetron 4 mg tablet,disintegrating 4 mg PO Q8H PRN (Reason: nausea and vomiting) Qty: 10 0RF No Action diclofenac sodium [Voltaren Arthritis Pain] 1 % gel 4 g topical QID Qty: 100 0RF Rx Instructions: apply to single knee, ankle, foot; for foot includes sole/toes/top of foot [facility]Kenneth NP [Primary Care Provider] - 10/06/24 Problem List Clinical Impression: Dysuria Patient/Caregiver Discharge Instructions Education Materials: Dysuria Additional Instructions: Please follow up with your primary care doctor in the next 24-48hrs for any worsening symptoms return here immediately Print Language: Azeri Stand Alone Forms: Vickie Award Info., Work/School Release, Patient Portal Info Letter JERRY/SAM Supervising Physician JERRY/SAM Supervising Physician: Dr. traylor
[2024-10-05 10:14] VITALS: BP 111/76; PULSE 64; RESP 12; TEMP 36.7; O2SAT 97
== END 2024-10-05 10:16 | disposition home or self-care (01) ==
PROVIDERS: Nurse Practitioner Primary Care; Emergency Provider Family Medicine; PCP Nurse Practitioner Family
DX: R30.0 Dysuria (principal)
CPT/HCPCS: 81001; 81025; 99283